=== PATIENT | female | born 1995 | race Two or more races ===

== ENCOUNTER 2024-06-22 20:02 | Inpatient (IN) | payer MEDICAID, OTHER ==
[~2024-06-22] VITALS: Ht 162.6 cm; Wt 110.1 kg
[2024-06-22 20:38] LABS: Urine Bacteria None Seen /hpf (None Seen)
[2024-06-22 20:55] LABS: Urine Blood Negative /uL (Negative); Urine Clarity Turbid (Clear); Urine Color Yellow (Yellow); Urine Mucus FEW (None Seen); Urine Protein, UAD 1+ (Negative); Urine Specific Gravity 1.035 (1.001-1.035); Urine Squamous Epithelial Cell FEW /hpf (<5); Urine Urobilinogen Normal (Negative); Urine WBC 3 /HPF (0-5)
[2024-06-22 21:14] LABS: Basophils # (auto) 0.1 10 ^3/uL (0-0.2); Eosinophils # (auto) 0 10 ^3/uL (0-0.8); Eosinophils % (auto) 0.2 % (0.0-7.0); Hemoglobin 13.5 g/dL (12.2-16.2); Monocytes # (auto) 0.8 10 ^3/uL (0-1.3)
[2024-06-22 21:18] LABS: Basophils % (auto) 0.5 % (0.0-2.0); Hematocrit 39.7 % (36.0-46.0); Lymphocytes # (auto) 1.3 10 ^3/uL (0.4-5.4); Lymphocytes % (auto) 5.7 % (10.0-50.0); Mean Corpuscular Hemoglobin 28.6 pg (28.0-32.0); Mean Corpuscular Hgb Conc. 34.1 g/dL (32.0-36.0); Mean Corpuscular Volume 83.8 fL (80.0-100.0); Monocytes % (auto) 3.3 % (0.0-12.0); Neutrophils # (auto) 20.6 10 ^3/uL (1.6-8.6); Neutrophils % (auto) 90.3 % (37.0-80.0); Platelet Count (auto) 474 10^3/uL (140-450); Red Blood Cells 4.74 10^6/uL (4.0-5.20); Red Cell Distribution Width 13.8 % (11.8-14.3); White Blood Cell 22.8 10^3/uL (4.4-10.8)
[2024-06-22 21:31] LABS: Alanine Aminotransferase 37 U/L (7-40); Albumin 5.3 g/dL (3.2-4.8); Alkaline Phosphatase 111 U/L (46-116); Anion Gap 10 (5-15); Aspartate Aminotransferase 44 U/L (13-40); BUN/Creatinine Ratio 11.8 (10.0-20.0); Bilirubin, Total 0.5 mg/dL (0.2-1.0); Blood Urea Nitrogen 9 mg/dL (9-23); Calcium 10.1 mg/dL (8.7-10.4); Carbon Dioxide 26 mmol/L (20-31); Chloride 102 mmol/L (98-107); Glucose 104 mg/dL (74-106); Potassium 4.1 mmol/L (3.5-5.1); Sodium 138 mmol/L (136-145); Total Protein 8.8 g/dL (5.7-8.2)
--- NOTE | 2024-06-22 21:33 | DVH ---
Exam: CT CT AB PEL WO CON-NO ORAL OR IV History: flank pain Comparison Study: None Technique: Multidetector spiral CT of the abdomen was performed from lung bases to pubic symphysis. Imaging was performed without IV contrast. Axial, coronal and sagittal multiplanar reformats were ob tained from the axial data set by the technologist. Radiation Dose : 1. Abdomen/Pelvis: CTDIvol 19.3 mGy, DLP 1208 mGy*cm. Findings: Evaluation of solid organs is limited due to lack of intravenous contrast use. Lung Bases: No acute or significant lung base finding. Normal heart size. No pleural or pericardial effusion. Liver: The liver is normal in size. No focal lesions. Gallbladder and Biliary Tree: Cholelithiasis noted without secondary findings of cholecystitis or sneha iary obstruction. Spleen: Unremarkable Pancreas: The pancreas is grossly normal in appearance. Adrenal Glands: Unremarkable Kidneys: Kidneys are grossly normal without calculi or hydronephrosis. Bladder: Grossly unremarkable for degree of distention. Bowel: The stomach is grossly normal in appearance. Concentric wall thickening of the distal colon wi th adjacent fat stranding, suspicious for infectious/inflammatory colitis . The appendix is not visu alized; however, no secondary findings of acute appendicitis identified. Ascites: Absent Lymphadenopathy: No mesenteric, retroperitoneal or periportal lymphadenopathy. Abdominal Wall and Mesentery: Unremarkable. Vasculature: The visualized abdominal aorta is normal in size and caliber. Evaluation of abdominal a nd pelvic vessels is limited due to lack of intravenous contrast. Pelvic Organs: Heterogeneous tubular fluid collections are seen in the region of the bilateral adnexa measuring up 5.8 cm on the right and up to 6.8 cm in the left. Musculoskeletal: No aggressive focal bony lesions, acute fractures or dislocation. IMPRESSION: 1. Concentric wall thickening of the distal colon with adjacent fat stranding, suspicious for infecti ous/inflammatory colitis . 2. Heterogeneous tubular fluid collections are seen in the region of the bilateral adnexa measuring u p to 5.8 cm on the right and up to 6.8 cm in the left. Differential considerations include tubo-ovar joshua abscess, hydrosalpinx, or other etiology. Recommend pelvic ultrasound for further evaluation. Radiation optimization: All CT scans at this facility use at least one of these dose optimization lowell hniques: automated exposure control mA and/or kV adjustment per patient size (includes targeted exam s where dose is matched to clinical indication) or iterative reconstruction.
--- NOTE | 2024-06-22 22:47 | DVH ---
INDICATION: pelvic pain TECHNIQUE: Multiple real-time grayscale transabdominal sonographic images along with color and duplex Doppler of the uterus and ovaries were obtained. COMPARISON: None FINDINGS: The uterus measures 9.9 x 8.3 x 5.4 cm. cm. The endometrial stripe measures 12.6 mm. The right ovary measures 8.1 x 5.6 x 4.8 cm. Cystic mass mass in the right ovary 4.7 x 2.5 x 3.4 cm The left ovary measures 7.9 x 7 x 6.6 cm. Cystic mass in the left ovary measuring 6.1 x 4.1 x 6 cm. Subsequent color and duplex Doppler interrogation of the ovaries demonstrated symmetric vascular flow to both ovaries, though this does not exclude the possibility of torsion due to the dual blood suppl y. IMPRESSION: 1. Uterus normal. 2. Thickened endometrial canal. 3. Cystic lesions in both ovaries. 4. Normal Doppler imaging of the right and left ovaries
[2024-06-22 23:20] VITALS: PULSE 115; RESP 20; O2SAT 98
[2024-06-22] MEDS: HYDROcodone-ACET 5/325MG TAB PO ONE (23:33)
[2024-06-23] MEDS ORDERED: PIPERACILLIN-TAZOB 2.25GM 50 ML IV ONE (01:00)
--- NOTE | 2024-06-23 01:02 | ED.PDOC ---
General HPI Comments 29-year-old female complaining of left-sided flank pain which started 3:00 p.m. today sharp in nature. States it started with chills and nausea. Nothing makes it better. States patient was 8/10 getting worse. Radiates to her suprapubic region. No urinary symptoms. No vaginal discharge. 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: No Pertinent PAPER PRODUCTS INSPECTOR History Constitutional: denies: chills, diaphoresis, fatigue, fever, malaise, sweats, weakness, others EENTM: denies: blurred vision, double vision, ear bleeding, ear discharge, ear drainage, ear pain, ear ringing, eye pain, eye redness, hearing loss, mouth pain, mouth swelling, nasal discharge, nose bleeding, nose congestion, nose pain, photophobia, tearing, throat pain, throat swelling, voice changes, others Respiratory: denies: cough, hemoptysis, orthopnea, SOB at rest, shortness of breath, SOB with excertion, stridor, wheezing, others Cardiovascular: denies: chest pain, dizzy spells, diaphoresis, Dyspnea on exertion, edema, irregular heart beat, left arm pain, lightheadedness, palpitations, PND, syncope, others Gastrointestinal: denies: abdomen distended, abdominal pain, blood streaked bowels, constipated, diarrhea, dysphagia, difficulty swallowing, hematemesis, melena, nausea, poor appetite, poor fluid intake, rectal bleeding, rectal pain, vomiting, others Genitourinary: denies: abnormal vagina bleeding, burning, dyspareunia, dysuria, flank pain, frequency, hematuria, incontinence, pain, , vagina discharge, urgency, others Neurological: denies: dizziness, fainting, headache, left sided numbness, left sided weakness, numbness, paresthesia, pre-existing deficit, right sided numbness, right sided weakness, seizure, speech problems, tingling, tremors, we akness, others Musculoskeletal: denies: back pain, gout, joint pain, joint swelling, muscle pain, muscle stiffness, neck pain, others Integumetry: denies: bruises, change in color, change in hair/nails, dryness, laceration, lesions, lumps, rash, wounds, others Allergic/Immunocompromised: denies: Difficulty Healing, Frequent Infections, Hives, Itching, others Endocrine: denies: excessive hunger, excessive sweating, excessive thirst, excessive urination, flushing, intolerance to cold, intolerance to heat, unexplained weight gain, unexplained weight loss, others Physical Exam General Appearance: Moderate Distress HEENT: Normal ENT Inspection, Pharynx Normal, TMs Normal Neck: Full Range of Motion, Non-Tender, Normal, Normal Inspection Respiratory: Chest Non-Tender, Lungs Clear, No Accessory Muscle Use, No Respiratory Distress, Normal Breath Sounds Cardiovascular: No Edema, No JVD, No Murmur, No Gallop, Normal Peripheral Pulses, Regular Rate/Rhythm Breast Exam: Deferred Gastrointestinal: No Organomegaly, Non Tender, No Pulsatile Mass, Normal Bowel Sounds, Soft Genitalia: Deferred Pelvic: Deferred Rectal: Deferred Extremities: No calf tenderness, Normal capillary refill, Normal inspection, Normal range of motion, Non-tender, No pedal edema Musculoskeletal : Apperance: Normal Neurologic: Alert, 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 Was a procedure done?: No Differential Diagnosis Kidney stone (Female): Ectopic , Musculoskeletal pain, Ovarian torsion, Pancreatitis, Pyelonephritis X-Ray, Labs, Meds, VS Vital Signs Date Time Temp Pulse Resp B/P (MAP) Pulse Ox O2 Delivery O2 Flow Rate FiO2 06/22/24 23:20 98.1 115 20 150/98 (115) 98 98.1 06/22/24 23:20 115 20 98 Room Air* 0 21 06/22/24 20:20 98.4 100 20 130/71 (90) 98 Lab Test 06/22/24 20:41 06/22/24 20:20 Range/Units White Blood Count 22.8 H 4.4-10.8 10^3/uL Red Blood Count 4.74 4.0-5.20 10^6/uL Hemoglobin 13.5 12.2-16.2 g/dL Hematocrit 39.7 36.0-46.0 % Mean Corpuscular Volume 83.8 80.0-100.0 fL Mean Corpuscular Hemoglobin 28.6 28.0-32.0 pg Mean Corpuscular Hemoglobin Concent 34.1 32.0-36.0 g/dL Red Cell Distribution Width 13.8 11.8-14.3 % Platelet Count 474 H 140-450 10^3/uL Mean Platelet Volume 7.5 6.9-10.8 fL Neutrophils (%) (Auto) 90.3 H 37.0-80.0 % Lymphocytes (%) (Auto) 5.7 L 10.0-50.0 % Monocytes (%) (Auto) 3.3 0.0-12.0 % Eosinophils (%) (Auto) 0.2 0.0-7.0 % Basophils (%) (Auto) 0.5 0.0-2.0 % Neutrophils # (Auto) 20.6 H 1.6-8.6 10 ^3/uL Lymphocytes # (Auto) 1.3 0.4-5.4 10 ^3/uL Monocytes # (Auto) 0.8 0-1.3 10 ^3/uL Eosinophils # (Auto) 0 0-0.8 10 ^3/uL Basophils # (Auto) 0.1 0-0.2 10 ^3/uL Nucleated Red Blood Cells 0.0 % Sodium Level 138 136-145 mmol/L Potassium Level 4.1 3.5-5.1 mmol/L Chloride Level 102 98-107 mmol/L Carbon Dioxide Level 26 20-31 mmol/L Anion Gap 10 5-15 Blood Urea Nitrogen 9 9-23 mg/dL Creatinine 0.76 0.550-1.02 mg/dL Glomerular Filtration Rate Calc 109 >90 mL/min BUN/Creatinine Ratio 11.8 10.0-20.0 Serum Glucose 104 74-106 mg/dL Calcium Level 10.1 8.7-10.4 mg/dL Total Bilirubin 0.5 0.2-1.0 mg/dL Aspartate Amino Transferase (AST) 44 H 13-40 U/L Alanine Aminotransferase (ALT) 37 7-40 U/L Alkaline Phosphatase 111 46-116 U/L Total Protein 8.8 H 5.7-8.2 g/dL Albumin 5.3 H 3.2-4.8 g/dL Urine Color Yellow Yellow Urine Clarity Turbid H Clear Urine pH 6.0 5.0-9.0 Urine Specific [place] 1.035 1.001-1.035 Urine Protein 1+ H Negative Urine Ketones Trace Negative Urine Blood Negative Negative /uL Urine Nitrite Negative Negative Urine Bilirubin Negative Negative Urine Urobilinogen Normal Negative mg/dL Urine Leukocyte Esterase Negative Negative /uL Urine RBC 1 0 - 4 /hpf Urine Microscopic WBC 3 0-5 /HPF Urine Squamous Epithelial Cells Few <5 /hpf Urine Bacteria None seen None Seen /hpf Urine Mucus Few None Seen Urine Glucose Normal Normal mg/dL Urine Test Negative Negative Current Medications Medications (Trade) Dose Ordered Sig/Cecy Route Start Time Stop Time Status Last Admin Acetaminophen/ Hydrocodone Bitart ([place] 5/325MG Tab) 1 tab ONCE ONCE PO 06/22/24 23:15 06/22/24 23:16 DC 06/22/24 23:33 X-Ray, Labs, Meds, VS Comment Spoke with doctors TARAS bernal on-call patient will be admitted for possible ovarian abscess She recommends starting patient on Zosyn, doxycycline, Rocephin Patient be given morphine 4 mg in ER Time of 1ST Reevaluation: 01:01 Reevaluation 1ST: Unchanged Patient Education/Counseling: Diagnosis, Treatment Family Education/Counseling: Diagnosis, Treatment Departure 1 Departure Time of Disposition: 01:00 Impression: Primary Impression: Ovarian abscess Disposition: 09 ADMITTED INPATIENT Condition: Stable Discharged With: Self Critical Care Note Critical Care Time?: No Stability Stability form required: No Heart Score Heart Score: Heart Score Response (Comments) Value History N/A 0 EKG N/A 0 Age N/A 0 Risk Factors N/A 0 Troponin N/A 0 Total 0 CYRIL DU Jun 23, 2024 01:01
[2024-06-23] MEDS: cefTRIAXone 1GM/50ML D5W 50 ML IV ONE ×2 (01:23→14:06)
[2024-06-23] MEDS: ONDANSETRON HCL 4 MG/2 ML VIAL IV ONE (01:23)
[2024-06-23] MEDS: MORPHINE SULFATE 4 MG/ML SYR/VIAL IV ONE (01:24)
[2024-06-23] MEDS ORDERED: metroNIDAZOLE 500MG/100ML 100 ML IV SCH (01:45)
[2024-06-23] MEDS: SODIUM CHLORIDE 0.9% 1,650 ML IV ONE (02:05)
[2024-06-23 02:31] LABS: Lactic Acid w/Reflex 2.4 mmol/L (0.4-2.0)
[2024-06-23] MEDS: SODIUM CHLORIDE 0.9% 1,000 ML IV SCH (03:12)
[2024-06-23] MEDS: DOXYCYCLINE 100MG/100ML 100 ML IV SCH (03:20)
[2024-06-23 03:25] LABS: Erythrocyte Sedimentation Rate 32 mm/hr (0-20)
[2024-06-23] MEDS: KETOROLAC TROMETH 30 MG/ML 1ML VIAL IV PRN (03:28)
--- NOTE | 2024-06-23 04:52 | DVHHPRES ---
History of Present Illness Resident Creating Document: CRISTINA CANNON RESIDENT Reason for Visit: tuboovarian abcess History of Present Illness 29-year-old female presenting with a complaint of left-sided flank pain that began at approximately 3:00 PM yesterday. The pain was initially sharp in nature, accompanied by chills and nausea. She reports that the pain has progressively worsened, with a severity of 8/10. The pain radiates to the suprapubic region and has become more generalized. She also reports vaginal discharge, described as white. She denies urinary symptoms, dysuria, or dyspareunia. Her last menstrual period was in the first week of April. She has a history of irregular menstrual cycles. Obstetric history includes one section performed eight months ago. No history of . Past Medical History: Denies any chronic medical conditions Past Surgical History: One section (8 months ago) Obstetric/Gynecologic History: : 1, Para: 1 Irregular menstrual cycles No history of Allergies: No known drug allergies Medications: None reported Review of Systems Review of Systems Constitutional: Reports chills, fatigue. No fever or malaise. HEENT: Denies headaches, vision changes, ear pain, nasal congestion, or sore throat. Cardiovascular: Denies chest pain, palpitations, or dyspnea on exertion. Respiratory: Denies shortness of breath, cough, or wheezing. Gastrointestinal: Reports nausea. Denies vomiting, diarrhea, constipation, or hematochezia. Genitourinary: Reports left flank pain radiating to the suprapubic region. No dysuria or hematuria. Reports white vaginal discharge. Neurological: Denies dizziness, tingling, or focal weakness. Endocrine: Denies heat/cold intolerance or weight changes. Musculoskeletal: Denies joint pain or swelling. Allergies: Coded Allergies: NO KNOWN ALLERGIES (Unverified , 06/22/24) Medications Current Medications Medications Dose Ordered Sig/Cecy Route Start Time Stop Time Status Last Admin Dose Admin Ceftriaxone Sodium 50 ml @ 100 mls/hr DAILY@09 IV 06/24/24 09:00 Doxycycline Hyclate 100 ml @ 50 mls/hr Q12H IV 06/23/24 01:45 06/23/24 03:20 50 MLS/HR Sodium Chloride 1,000 ml @ 125 mls/hr Q8H IV 06/23/24 01:45 06/23/24 03:12 125 MLS/HR Ketorolac Tromethamine 30 mg Q6HPRN PRN IV 06/23/24 01:45 06/28/24 01:44 06/23/24 03:28 30 MG Acetaminophen 500 mg Q6HP PRN PO 06/23/24 01:45 Metronidazole 100 ml @ 100 mls/hr Q8HR IV 06/23/24 03:00 Exam Vital Signs Vital Signs Date Time Temp Pulse Resp B/P (MAP) Pulse Ox O2 Delivery O2 Flow Rate FiO2 06/23/24 03:32 99.2 117 18 119/62 (81) 96 99.2 06/22/24 23:20 Room Air* 0 21 Exam HEENT: Normocephalic, atraumatic. No oropharyngeal abnormalities. Neck: No lymphadenopathy. No thyromegaly. Cardiovascular: Regular rate and rhythm. No murmurs, rubs, or gallops. Pulmonary: Clear to auscultation bilaterally. No respiratory distress. Abdomen: Soft, mild suprapubic tenderness, no peritoneal signs. Bowel sounds present. Genitourinary: left CVA tenderness. Neurological: Alert and oriented. No focal deficits. Labs/Xrays Labs Test 06/23/24 03:44 06/23/24 01:56 06/22/24 20:41 06/22/24 20:20 Range/Units White Blood Count 22.8 H 4.4-10.8 10^3/uL Red Blood Count 4.74 4.0-5.20 10^6/uL Hemoglobin 13.5 12.2-16.2 g/dL Hematocrit 39.7 36.0-46.0 % Mean Corpuscular Volume 83.8 80.0-100.0 fL Mean Corpuscular Hemoglobin 28.6 28.0-32.0 pg Mean Corpuscular Hemoglobin Concent 34.1 32.0-36.0 g/dL Red Cell Distribution Width 13.8 11.8-14.3 % Platelet Count 474 H 140-450 10^3/uL Mean Platelet Volume 7.5 6.9-10.8 fL Neutrophils (%) (Auto) 90.3 H 37.0-80.0 % Lymphocytes (%) (Auto) 5.7 L 10.0-50.0 % Monocytes (%) (Auto) 3.3 0.0-12.0 % Eosinophils (%) (Auto) 0.2 0.0-7.0 % Basophils (%) (Auto) 0.5 0.0-2.0 % Neutrophils # (Auto) 20.6 H 1.6-8.6 10 ^3/uL Lymphocytes # (Auto) 1.3 0.4-5.4 10 ^3/uL Monocytes # (Auto) 0.8 0-1.3 10 ^3/uL Eosinophils # (Auto) 0 0-0.8 10 ^3/uL Basophils # (Auto) 0.1 0-0.2 10 ^3/uL Nucleated Red Blood Cells 0.0 % Erythrocyte Sedimentation Rate 32 H 0-20 mm/hr Sodium Level 138 136-145 mmol/L Potassium Level 4.1 3.5-5.1 mmol/L Chloride Level 102 98-107 mmol/L Carbon Dioxide Level 26 20-31 mmol/L Anion Gap 10 5-15 Blood Urea Nitrogen 9 9-23 mg/dL Creatinine 0.76 0.550-1.02 mg/dL Glomerular Filtration Rate Calc 109 >90 mL/min BUN/Creatinine Ratio 11.8 10.0-20.0 Serum Glucose 104 74-106 mg/dL Calcium Level 10.1 8.7-10.4 mg/dL Total Bilirubin 0.5 0.2-1.0 mg/dL Aspartate Amino Transferase (AST) 44 H 13-40 U/L Alanine Aminotransferase (ALT) 37 7-40 U/L Alkaline Phosphatase 111 46-116 U/L C-Reactive Protein High Sensitivity 3.13 H <1.0 mg/dL Total Protein 8.8 H 5.7-8.2 g/dL Albumin 5.3 H 3.2-4.8 g/dL Urine Color Yellow Yellow Urine Clarity Turbid H Clear Urine pH 6.0 5.0-9.0 Urine Specific [place] 1.035 1.001-1.035 Urine Protein 1+ H Negative Urine Ketones Trace Negative Urine Blood Negative Negative /uL Urine Nitrite Negative Negative Urine Bilirubin Negative Negative Urine Urobilinogen Normal Negative mg/dL Urine Leukocyte Esterase Negative Negative /uL Urine RBC 1 0 - 4 /hpf Urine Microscopic WBC 3 0-5 /HPF Urine Squamous Epithelial Cells Few <5 /hpf Urine Bacteria None seen None Seen /hpf Urine Mucus Few None Seen Urine Glucose Normal Normal mg/dL Urine Test Negative Negative Assessment/Plan Assessment/Plan Laboratory and Imaging Findings: Laboratory Results: WBC: 22.8 CRP: 3.13 Lactic Acid: 2.4 Neg test Imaging: CT Abdomen/Pelvis (Non-contrast): Concentric wall thickening of the distal colon with adjacent fat stranding, suspicious for infectious/inflammatory colitis. Heterogeneous tubular fluid collections in the bilateral adnexa (right: 5.8 cm, left: 6.6 cm) possible tubo-ovarian abscess. No acute appendicitis. Pelvic Ultrasound: Uterus normal. Thickened endometrial canal. Cystic lesions in both ovaries. Normal Doppler flow to ovaries Assessment & Plan: 29-year-old female with recent section 8 months ago, irregular periods, and presenting with acute left flank pain radiating to the suprapubic region with leukocytosis and adnexal fluid collections concerning for a possible tubo- ovarian abscess. 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 Blood, stool and urine culture NAAT NG/Chlamydia Ca 125 ordered Pain management Case discussed with Dr Betancourt Plan discussed with: Patient, Other (rn) My Orders Orders - CRISTINA CANNON RESIDENT Procedure Category Date Status Time Admit ADMIT 06/23/24 Transmitted 01:34 * Visor Installer Consultation CONS 06/23/24 Transmitted 01:34 Doxycycline PHA 06/23/24 In Process 100mg/100ml 01:45 Npo After Midnight DIET 06/23/24 Transmitted Breakfast Sodium Chloride 0.9% PHA 06/23/24 In Process 01:45 Ketorolac Injection PHA 06/23/24 In Process (Toradol Injection) 01:45 Acetaminophen Tab Or PHA 06/23/24 In Process Cap (Tylenol Tablet 01:45 Ca 125 (Serial) LAB 06/23/24 In Process 01:39 Blood Culture SENTHIL 06/23/24 In Process 01:40 Urine Bacterial SENTHIL 06/23/24 In Process Culture 01:40 Chlamydia/Gc LAB 06/23/24 In Process Amplification 01:40 Ceftriaxone 1gm/50ml PHA 06/24/24 In Process D5w (Rocephin) 09:00 Metronidazole PHA 06/23/24 In Process 500mg/100ml (Flagyl 03:00 Stool Bacterial SENTHIL 06/23/24 Logged Culture 02:18 Stool Occult Blood LAB 06/23/24 Logged 02:18 Stool Wbc LAB 06/23/24 Logged 02:18 Complete Blood Count LAB 06/23/24 Logged 04:09 Comprehensive LAB 06/23/24 Logged Metabolic Panel 04:09 Date of Service: Jun 23, 2024 Billing Provider: ARIEL BETANCOURT MD Common Visit Codes: [id number] INP/OBS CARE (HIGH) CRISTINA CANNON RESIDENT Jun 23, 2024 04:52 ARIEL BETANCOURT MD Jun 27, 2024 17:22
[2024-06-23] MEDS: metroNIDAZOLE 500MG/100ML 100 ML IV SCH (05:37)
[2024-06-23 08:05] LABS: Basophils # (auto) 0.1 10 ^3/uL (0-0.2); Basophils % (auto) 0.3 % (0.0-2.0); Eosinophils # (auto) 0.1 10 ^3/uL (0-0.8); Eosinophils % (auto) 0.2 % (0.0-7.0); Hematocrit 38.2 % (36.0-46.0); Hemoglobin 12.2 g/dL (12.2-16.2); Lymphocytes # (auto) 1.2 10 ^3/uL (0.4-5.4); Lymphocytes % (auto) 4.2 % (10.0-50.0); Mean Corpuscular Hemoglobin 27.1 pg (28.0-32.0); Mean Corpuscular Hgb Conc. 31.9 g/dL (32.0-36.0); Mean Corpuscular Volume 84.9 fL (80.0-100.0); Monocytes # (auto) 0.9 10 ^3/uL (0-1.3); Monocytes % (auto) 3.2 % (0.0-12.0); Neutrophils # (auto) 25.1 10 ^3/uL (1.6-8.6); Neutrophils % (auto) 92.1 % (37.0-80.0); Platelet Count (auto) 399 10^3/uL (140-450); Red Cell Distribution Width 13.5 % (11.8-14.3); White Blood Cell 27.2 10^3/uL (4.4-10.8)
[2024-06-23] MEDS: ACETAMINOPHEN 500 MG TAB or CAP PO PRN (08:21)
[2024-06-23 08:22] LABS: INR 1.18 (0.9-1.15); Partial Thromboplastin Time 29.9 SEC (24.5-34.5); Prothrombin Time 12.3 sec (9.3-11.8)
[2024-06-23 08:30] VITALS: BP 129/57; PULSE 119; RESP 20; TEMP 99.7; O2SAT 98
[2024-06-23 08:40] LABS: Beta HCG, Quantitative 0.1 mIU/mL (1.5-4.2); Thyroid Stimulating Hormone 1.15 uIU/mL (0.55-4.78)
[2024-06-23 09:13] LABS: Alanine Aminotransferase 27 U/L (7-40); Alkaline Phosphatase 97 U/L (46-116); Anion Gap 9 (5-15); BUN/Creatinine Ratio 9.7 (10.0-20.0); Calcium 8.9 mg/dL (8.7-10.4); Carbon Dioxide 22 mmol/L (20-31); Magnesium 1.6 mg/dL (1.6-2.6); Sodium 139 mmol/L (136-145); Total Protein 7.8 g/dL (5.7-8.2)
[2024-06-23 09:14] LABS: Albumin 4.7 g/dL (3.2-4.8); Aspartate Aminotransferase 20 U/L (13-40); Bilirubin, Total 0.9 mg/dL (0.2-1.0); Blood Urea Nitrogen 7 mg/dL (9-23); Chloride 108 mmol/L (98-107); Glucose 113 mg/dL (74-106)
[2024-06-23] MEDS ORDERED: DOXYCYCLINE 100MG/100ML 100 ML IV SCH (10:00)
--- NOTE | 2024-06-23 13:04 | DVHINCON2 ---
Date of service: Jun 23, 2024 Referring Physician hospitalist Reason for Consultation tubo-ovarian absess History of Present Illness pt is female admitted for sepsis due to bilat toa ,pt reports having fever ,chilla assoc with abd pain .she also had taCHYCARDIA WITH LEUCKOCYTOSIS Past Medical History NONE Past Surgical History CS X1 Family History NA Social History DENIES SMOKING OR DRINKING Patient Family History: Patient reports no known family medical history. Allergies: Coded Allergies: NO KNOWN ALLERGIES (Unverified , 06/22/24) Home Meds No Active Prescriptions or Reported Meds Current Medications Current Medications Medications (Trade) Dose Ordered Sig/Cecy Route PRN Reason Start Time Stop Time Status Last Admin Doxycycline Hyclate 100 ml @ 50 mls/hr BID IV 06/23/24 10:00 06/23/24 01:40 DC Ceftriaxone Sodium 50 ml @ 100 mls/hr DAILY@09 IV 06/24/24 09:00 Doxycycline Hyclate 100 ml @ 50 mls/hr Q12H IV 06/23/24 01:45 06/23/24 03:20 Metronidazole 100 ml @ 100 mls/hr Q8HR IV 06/23/24 01:45 06/23/24 01:58 DC Sodium Chloride 1,000 ml @ 125 mls/hr Q8H IV 06/23/24 01:45 06/23/24 09:38 Ketorolac Tromethamine (Toradol Injection) 30 mg Q6HPRN PRN IV MODERATE PAIN (4-6 PAIN SCALE) 06/23/24 01:45 06/28/24 01:44 06/23/24 09:30 Acetaminophen (Tylenol Tablet Or Capsule) 500 mg Q6HP PRN PO MILD PAIN (1-3 PAIN SCALE) 06/23/24 01:45 06/23/24 11:04 DC 06/23/24 08:21 Metronidazole 100 ml @ 100 mls/hr Q8HR IV 06/23/24 03:00 06/23/24 05:37 Acetaminophen (Tylenol Tablet Or Capsule) 500 mg Q6H PO 06/23/24 11:15 Review of Systems Constitutional: POSITIVE FOR fever, chill, NO weight loss HEENT: no eye pain, no hearing loss, no oral lesion, no scleral icterus Heart: no chest pain, no chest pressure Lung: no cough, no dyspnea with exertion Abdomen: see HPI : no pain with urination, normal appearing urine Musculoskeletal: no joint pain, no muscle pain Neurological: no seizure, no loss of sensation, no weakness in extremities Pysch: no depression, no anxiety Derm: no rash, no jaundice Vital Signs Vital Signs Date Time Temp Pulse Resp B/P (MAP) Pulse Ox O2 Delivery O2 Flow Rate FiO2 06/23/24 08:30 99.7 119 20 129/57 (81) 98 99.7 06/22/24 23:20 Room Air* 0 21 Physical Exam SKIN: [WARM TO TOUCH] HEENT: [NL] NECK: [NL] CARDIAC: [TACHY RATE] PULMONARY: [CTA] ABDOMEN: [SOFT,OBESE GENERALIZED TENDERNESS,NO REBOUND] MUSCULOSKELETAL: [NL] NEURO: [NL] PELVIC-VAG WARM ,NO PURULENT DC NOTED,POS CMT Labs/Diagnostic Data Labs Test 06/23/24 11:09 06/23/24 07:48 06/23/24 01:56 06/22/24 20:41 Range/Units Lactic Acid Level 2.0 0.4-2.0 mmol/L White Blood Count 27.2 H 4.4-10.8 10^3/uL Red Blood Count 4.50 4.0-5.20 10^6/uL Hemoglobin 12.2 12.2-16.2 g/dL Hematocrit 38.2 36.0-46.0 % Mean Corpuscular Volume 84.9 80.0-100.0 fL Mean Corpuscular Hemoglobin 27.1 L 28.0-32.0 pg Mean Corpuscular Hemoglobin Concent 31.9 L 32.0-36.0 g/dL Red Cell Distribution Width 13.5 11.8-14.3 % Platelet Count 399 140-450 10^3/uL Mean Platelet Volume 7.4 6.9-10.8 fL Neutrophils (%) (Auto) 92.1 H 37.0-80.0 % Lymphocytes (%) (Auto) 4.2 L 10.0-50.0 % Monocytes (%) (Auto) 3.2 0.0-12.0 % Eosinophils (%) (Auto) 0.2 0.0-7.0 % Basophils (%) (Auto) 0.3 0.0-2.0 % Neutrophils # (Auto) 25.1 H 1.6-8.6 10 ^3/uL Lymphocytes # (Auto) 1.2 0.4-5.4 10 ^3/uL Monocytes # (Auto) 0.9 0-1.3 10 ^3/uL Eosinophils # (Auto) 0.1 0-0.8 10 ^3/uL Basophils # (Auto) 0.1 0-0.2 10 ^3/uL Nucleated Red Blood Cells 0.0 % Prothrombin Time 12.3 H 9.3-11.8 sec Prothrombin Time INR 1.18 H 0.9-1.15 Activated Partial Thromboplast Time 29.9 24.5-34.5 SEC Sodium Level 139 136-145 mmol/L Potassium Level 4.0 3.5-5.1 mmol/L Chloride Level 108 H 98-107 mmol/L Carbon Dioxide Level 22 20-31 mmol/L Anion Gap 9 5-15 Blood Urea Nitrogen 7 L 9-23 mg/dL Creatinine 0.72 0.550-1.02 mg/dL Glomerular Filtration Rate Calc 116 >90 mL/min BUN/Creatinine Ratio 9.7 L 10.0-20.0 Serum Glucose 113 H 74-106 mg/dL Calcium Level 8.9 8.7-10.4 mg/dL Magnesium Level 1.6 1.6-2.6 mg/dL Total Bilirubin 0.9 0.2-1.0 mg/dL Aspartate Amino Transferase (AST) 20 13-40 U/L Alanine Aminotransferase (ALT) 27 7-40 U/L Alkaline Phosphatase 97 46-116 U/L Total Protein 7.8 5.7-8.2 g/dL Albumin 4.7 3.2-4.8 g/dL Vitamin B12 Level 399 211-911 pg/mL Vitamin D 25-Hydroxy 10.5 L 30.0-100 ng/mL Thyroid Stimulating Hormone (TSH) 1.15 0.55-4.78 uIU/mL Beta HCG, Quantitative 0.1 L 1.5-4.2 mIU/mL HIV (1&2) Antibody Negative Negative Erythrocyte Sedimentation Rate 32 H 0-20 mm/hr C-Reactive Protein High Sensitivity 3.13 H <1.0 mg/dL Test 06/22/24 20:20 Range/Units Urine Color Yellow Yellow Urine Clarity Turbid H Clear Urine pH 6.0 5.0-9.0 Urine Specific [place] 1.035 1.001-1.035 Urine Protein 1+ H Negative Urine Ketones Trace Negative Urine Blood Negative Negative /uL Urine Nitrite Negative Negative Urine Bilirubin Negative Negative Urine Urobilinogen Normal Negative mg/dL Urine Leukocyte Esterase Negative Negative /uL Urine RBC 1 0 - 4 /hpf Urine Microscopic WBC 3 0-5 /HPF Urine Squamous Epithelial Cells Few <5 /hpf Urine Bacteria None seen None Seen /hpf Urine Mucus Few None Seen Urine Glucose Normal Normal mg/dL Urine Test Negative Negative Primary Diagnosis BILATERAL TOA ,PID Admitting Diagnosis: PID,SEPSIS 2' Diagnosis/Comorbidities MORBID OBESITY Plan IVF,IV ABX REEVALUATE IN 24 HRS TO SEE IF IMPROVEMENT IS SEEN ,IF NO IMPROVEMENT OR WOSENING THEN NEEDS SURGERY.DR WILL WILL SEE PT IN AM Plan discussed with: Patient Visit Coding OBGYN Date of Service: Jun 23, 2024 Billing Provider: CASIE BROWN DO COACH CLEANER Common Visit Codes: 98999-PNK/OBS SAME DATE (HIGH) COACH CLEANER Consultation Codes: [id number] CONSULT <80MIN CASIE BROWN DO Jun 23, 2024 13:04
[2024-06-23 13:30] VITALS: BP 130/77; PULSE 130; RESP 20; TEMP 100.2; O2SAT 98
[2024-06-23] MEDS: ACETAMINOPHEN 500 MG TAB or CAP PO SCH (14:24)
--- NOTE | 2024-06-23 16:04 | DVHPNRES ---
Progress Note Date Seen: Jun 23, 2024 Resident Creating Document: YAZMIN RIVAS RESIDENT Medical Necessity Reason Pt with a Central, PICC or Fol: No Subjective Review of Systems Maru Chu this is a 29-year-old female with past medical history of ? Ovarian seroma, section 8 months back, irregular menstruation who presented to the ER with a chief complaint of back pain and lower abdominal pain for the past 1 day. Patient has been experiencing purulent yellowish vaginal discharge for the past 3 days, reports onset of sharp pain and burning pain in the lower abdomen and the back for the past 1 day. Associated with fever, chills and nausea. Ambulation makes the pain worse. Patient is only sexually active with the , was always monogamous. Denies history of STIs. Says that her menstrual cycles have always been irregular, they have been regular for the past 2 years. And now they are again irregular. Past medical history, surgical history: See above Social history: Denies smoking/drinking/illicit drug use. Medications: None reported Allergies: None PCP is in [place], patient does not follow up with them anymore Patient seen and examined at bedside. Started doxy, Metro, ceftriaxone 06/22. OBGYN consulted-recommended monitoring for 24 hours on IV antibiotics, otherwise consider surgeon. Objective vital signs Vital Sign Date Time Temp Pulse Resp B/P (MAP) Pulse Ox O2 Delivery O2 Flow Rate FiO2 06/23/24 14:24 100.2 06/23/24 08:30 119 20 129/57 (81) 98 06/22/24 23:20 Room Air* 0 21 Total Intake and Output 06/22/24 06/22/24 06/23/24 15:00 23:00 07:00 Intake Total 1800 ml Balance 1800 ml medications Current Medications Medications Dose Ordered Sig/Cecy Route Start Time Stop Time Status Last Admin Dose Admin Ceftriaxone Sodium 50 ml @ 100 mls/hr DAILY@09 IV 06/24/24 09:00 Doxycycline Hyclate 100 ml @ 50 mls/hr Q12H IV 06/23/24 01:45 06/23/24 14:25 50 MLS/HR Sodium Chloride 1,000 ml @ 125 mls/hr Q8H IV 06/23/24 01:45 06/23/24 09:38 125 MLS/HR Ketorolac Tromethamine 30 mg Q6HPRN PRN IV 06/23/24 01:45 06/28/24 01:44 06/23/24 09:30 30 MG Metronidazole 100 ml @ 100 mls/hr Q8HR IV 06/23/24 03:00 06/23/24 14:25 100 MLS/HR Acetaminophen 500 mg Q6H PO 06/23/24 11:15 06/23/24 14:24 500 MG Acetaminophen/ Hydrocodone Bitart 1 tab Q6HPRN PRN PO 06/23/24 14:45 Examination Patient lying in bed, in no acute distress General: Well-built, afebrile, palor, mucosae are moist Cardiovascular: Regular S1 and S2. No murmurs, gallops or rubs. No JVD elevation. No pedal edema Respiratory: Normal B/L air entry on room air. Clear lung sounds on auscultation Abdomen: Diffuse abdominal tenderness noted on palpation, bilateral costovertebral tenderness, normoactive bowel sounds, no organomegaly Genitourinary: Deferred MSK/skin: Mobilizes 4 limbs. Skin is dry and warm Neurological: No motor, no sensitive deficits, normal speech. Pupils are isocoric and reactive. Psych/Mental Status: A/Ox3 laboratory and microbiology Laboratory Tests 06/23/24 07:48 Test 06/23/24 07:48 Range/Units Serum Glucose 113 H 74-106 mg/dL Labs and/or images reviewed: Labs reviewed by me, Image(s) reviewed by me Problem List/Assessment/Plan Problem List/Assessment/Plan Sepsis likely secondary to bilateral tubo-ovarian abscess and PID Rule out STI Rule out hepatitis Lactic acidosis-resolved OBGYN consulted-recommended IV antibiotics, re-evaluate in 24 hours to see if improvement, no improvement then need surgery. Continue IV ceftriaxone, IV metronidazole, IV doxycycline starting 06/22 On clear liquid diet, NPO after midnight Vaginal culture, HIV, RPR, hepatitis, wet count, blood culture pending Continue IV fluids Howard and Toradol IV for pain control History of ulcerative colitis-not on medication Acute gastroenteritis, likely infectious Continue IV ceftriaxone and IV metronidazole Clear liquid diet Obesity Lifestyle modification advised Vitamin-D deficiency Supplemented Plan discussed with patient in which all questions have been answered Goals of care discussed with patient for more than 29 minutes, full code status Case discussed with Dr. Cunningham Plan discussed with: Patient My Orders My Orders Orders - YAZMIN RIVAS Procedure Category Date Status Time Wet [place] LAB 06/23/24 Logged 07:04 Bacterial Culture SENTHIL 06/23/24 Uncollected Vaginal 07:04 RPR LAB 06/23/24 In Process 07:30 Acetaminophen Tab Or PHA 06/23/24 In Process Cap (Tylenol Tablet 11:15 Hydrocodone-Acet PHA 06/23/24 In Process 5/325mg Tab (Howard 14:45 Date of Service: Jun 23, 2024 Billing Provider: ANJALI PAYNE MD Common Visit Codes: [id number] INP/OBS CARE(HIGH) YAZMIN RIVAS Jun 23, 2024 16:04 ANJALI PAYNE MD Jun 26, 2024 01:48
[2024-06-23 17:30] VITALS: BP 116/76; PULSE 132; RESP 24; TEMP 100; O2SAT 96
[2024-06-23] MEDS: ERGOCALCIFEROL 50,000 UNIT(1.25MG) CAP PO SCH (18:22)
[2024-06-23] MEDS: ACETAMINOPHEN IV 1000 MG/100ML (10MG/ML) IV ONE (18:44)
[2024-06-23 20:00] VITALS: PULSE 113; RESP 18
[2024-06-23 21:00] VITALS: BP 112/71; PULSE 113; RESP 19; TEMP 98.7; O2SAT 96
[2024-06-23] MEDS: CYANOCOBALAMIN (B-12) 1000 MCG/1 ML VIAL IM ONE (21:34)
[2024-06-23] MEDS: HYDROcodone-ACET 5/325MG TAB PO PRN (21:45)
[2024-06-23] MEDS: ACETAMINOPHEN 325 MG TAB PO SCH (23:25)
[2024-06-24] VITALS (8 sets, daily range): BP systolic 103–111; BP diastolic 58–73; PULSE 99–134; RESP 14–20; TEMP 98.3–100.9; O2SAT 95–98
[2024-06-24] MEDS ORDERED: ACETAMINOPHEN 500 MG TAB or CAP PO SCH (05:15)
[2024-06-24] MEDS: ACETAMINOPHEN 500 MG TAB or CAP PO SCH (06:00)
[2024-06-24] MEDS: ONDANSETRON HCL 4 MG/2 ML VIAL IV PRN (06:36)
[2024-06-24 07:28] LABS: Alanine Aminotransferase 19 U/L (7-40); Albumin 4.2 g/dL (3.2-4.8); Alkaline Phosphatase 96 U/L (46-116); Anion Gap 8 (5-15); BUN/Creatinine Ratio 7.8 (10.0-20.0); Carbon Dioxide 22 mmol/L (20-31); Magnesium 1.8 mg/dL (1.6-2.6); Potassium 3.6 mmol/L (3.5-5.1); Sodium 138 mmol/L (136-145)
[2024-06-24 07:31] LABS: Aspartate Aminotransferase 10 U/L (13-40); Bilirubin, Total 1.3 mg/dL (0.2-1.0); Blood Urea Nitrogen 6 mg/dL (9-23); Calcium 8.5 mg/dL (8.7-10.4); Chloride 108 mmol/L (98-107); Glucose 126 mg/dL (74-106)
[2024-06-24 07:44] LABS: Basophils # (auto) 0 10 ^3/uL (0-0.2); Basophils % (auto) 0.2 % (0.0-2.0); Eosinophils # (auto) 0 10 ^3/uL (0-0.8); Hematocrit 32.6 % (36.0-46.0); Hemoglobin 10.7 g/dL (12.2-16.2); Lymphocytes # (auto) 0.8 10 ^3/uL (0.4-5.4); Lymphocytes % (auto) 2.8 % (10.0-50.0); Mean Corpuscular Hgb Conc. 32.8 g/dL (32.0-36.0); Mean Corpuscular Volume 85.2 fL (80.0-100.0); Monocytes # (auto) 0.7 10 ^3/uL (0-1.3); Monocytes % (auto) 2.6 % (0.0-12.0); Neutrophils # (auto) 26.5 10 ^3/uL (1.6-8.6); Neutrophils % (auto) 94.4 % (37.0-80.0); Platelet Count (auto) 342 10^3/uL (140-450); Red Blood Cells 3.83 10^6/uL (4.0-5.20); Red Cell Distribution Width 13.8 % (11.8-14.3); White Blood Cell 28.1 10^3/uL (4.4-10.8)
[2024-06-24 08:07] LABS: RPR Non Reactive (Non Reactive)
[2024-06-24 09:07] LABS: Cancer Antigen (CA) 125 21.9 U/mL (0.0-38.1)
[2024-06-24] MEDS: cefTRIAXone 1GM/50ML D5W 50 ML IV SCH (09:18)
--- NOTE | 2024-06-24 10:01 | DVHINCON2 ---
Date of service: Jun 24, 2024 Referring Physician Hospitalist ; Dr. Kal Sal professor of criminal justice Reason for Consultation Bilateral tubo-ovarian abscess rule out sepsis, leukocytosis, pelvic pain. Patient has been on IV antibiotics for 48 hours and her white count continues to increase as well as increased pelvic abdominal pain. Patient has further desire for children History of Present Illness History Source: Patient, Other (Dr. BROWN D0 professor of criminal justice original initial admitting professor of criminal justice consultation. I am covering for the weekend she is not responding to IV a ntibiotics and increased pelvic abdominal pain) HPI Patient is history of section and significant bowel surgery as a child gastroschisis repair. She was admitted with bilateral tubo-ovarian what appeared to be abscesses and has not responded to antibiotics for 48 hours; she has increasing pain guarding and mild rebound. Home Meds No Active Prescriptions or Reported Meds Current Meds See list Chief Complaint of Abdominal/F: Abdominal pain (On my exam this a.m. she has guarding mild rebound and worsening pain. 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 Smoker: No Hx (Negative) (Dr. Mallory Aparicio for me obtunded get the house to call me a the house to I can not you sent me some phone number and I had left a voicemail she is still on the phone), Other (Occasional late) Review of Systems Constitutional: No symptom reported Ears, Nose, & Throat: No symptom reported Eyes: No symptom reported Pulmonary/Respiratory: No symptom reported Cardiovascular: No symptom reported Gastrointestinal: No symptom reported Genitourinary: No symptom reported Musculoskeletal: No symptom reported Skin: No symptom reported Psychiatric: No symptom reported Endocrine: No symptom reported Hemotologic/Lymphatic: No symptom reported H&P Exam Vital Signs Vital Signs Date Time Temp Pulse Resp B/P (MAP) Pulse Ox O2 Delivery O2 Flow Rate FiO2 06/24/24 08:57 100.0 119 17 105/66 (79) 98 100.0 06/23/24 20:00 Room Air* 0 21 General Appeara: Well developed, Well nourished, Normal Appearance, Mild distress Head Exam: Normal inspection Neck Exam: Normal inspection, Non-tender, Normal alignment Eye Exam: bilateral eye Normal inspection, bilateral eye PERRL, bilateral eye EOMI Ear Exam: bilateral ear Auricle normal, bilateral ear Canal normal, bilateral ear TM normal Nasal Exam: Normal inspection Mouth: Normal Inspection Pulmonary/Respiratory: Normal inspection, Normal breath sounds, Chest non- tender, Lungs clear Cardiovascular/Chest: Normal inspection, Regular rate, Normal Rhythm Abdominal Exam: Other (Mild rebound and guarding acute abdominal findings positive bowel sounds,) Abdominal Pain Onset Location: RLQ, LLQ, Suprapubic Rectal Exam: Deferred Back Exam: Normal inspection Pelvic Exam: External exam normal, Tender w/ cervical motion, Other (No abnormal vaginal discharge bilateral adnexal tenderness) Shoulder Exam: Normal inspection, Non-tender, Normal ROM Elbow/Forearm Exam: Normal inspection, Non-tender, Normal ROM Wrist Exam: Normal inspection, Non-tender, Normal ROM Hand Exam: Normal inspection, Non-tender, Normal ROM Hip exam: Normal inspection, Non-tender, Normal range of motion Legs: bilateral leg non-tender, bilateral leg normal inspection, bilateral leg normal range of motion, bilateral leg no evidence of injury Knees: bilateral knee non-tender, bilateral knee normal inspection, bilateral knee normal range of motion, bilateral knee no evidence of injury Ankle Exam: bilateral ankle Normal inspection, bilateral ankle Non-tender, bilateral ankle Normal range of motion, bilateral ankle No evidence of injury Foot: bilateral foot non-tender, bilateral foot normal inspection, bilateral foot normal range of motion, bilateral foot no evidence of injury Tendon/ Neuro: Normal sensation, Normal motor function, Normal tendon functions MACHINE FITTER Exam: Normal hearing, Normal speech, PERRL Motor/Sensory: Normal sensory function, Normal motor function, Negative Babinski's sign Deep Tendon Ref: All intact Neuro/Mental St: Alert, Oriented Appearance: Appropriate appearance, Appropriate insight Eye contact/ Speech: Cooperative, Good eye contact, Normal speech Coordination/Gait: Normal finger->nose, Normal gait, Negative Romberg's sign Skin Exam: Normal inspection, Normal color, Warm/dry Lymphatic: Normal inspection Wounds None Labs/Xrays Labs Test 06/24/24 09:13 06/24/24 06:45 06/23/24 07:48 06/23/24 01:56 Range/Units White Blood Count 28.1 H 4.4-10.8 10^3/uL Red Blood Count 3.83 L 4.0-5.20 10^6/uL Hemoglobin 10.7 L 12.2-16.2 g/dL Hematocrit 32.6 #L 36.0-46.0 % Mean Corpuscular Volume 85.2 80.0-100.0 fL Mean Corpuscular Hemoglobin 28.0 28.0-32.0 pg Mean Corpuscular Hemoglobin Concent 32.8 32.0-36.0 g/dL Red Cell Distribution Width 13.8 11.8-14.3 % Platelet Count 342 140-450 10^3/uL Mean Platelet Volume 7.6 6.9-10.8 fL Neutrophils (%) (Auto) 94.4 H 37.0-80.0 % Lymphocytes (%) (Auto) 2.8 L 10.0-50.0 % Monocytes (%) (Auto) 2.6 0.0-12.0 % Eosinophils (%) (Auto) 0.0 0.0-7.0 % Basophils (%) (Auto) 0.2 0.0-2.0 % Neutrophils # (Auto) 26.5 H 1.6-8.6 10 ^3/uL Lymphocytes # (Auto) 0.8 0.4-5.4 10 ^3/uL Monocytes # (Auto) 0.7 0-1.3 10 ^3/uL Eosinophils # (Auto) 0 0-0.8 10 ^3/uL Basophils # (Auto) 0 0-0.2 10 ^3/uL Nucleated Red Blood Cells 0.0 % Sodium Level 138 136-145 mmol/L Potassium Level 3.6 3.5-5.1 mmol/L Chloride Level 108 H 98-107 mmol/L Carbon Dioxide Level 22 20-31 mmol/L Anion Gap 8 5-15 Blood Urea Nitrogen 6 L 9-23 mg/dL Creatinine 0.77 0.550-1.02 mg/dL Glomerular Filtration Rate Calc 107 >90 mL/min BUN/Creatinine Ratio 7.8 L 10.0-20.0 Serum Glucose 126 H 74-106 mg/dL Calcium Level 8.5 L 8.7-10.4 mg/dL Magnesium Level 1.8 1.6-2.6 mg/dL Total Bilirubin 1.3 H 0.2-1.0 mg/dL Aspartate Amino Transferase (AST) 10 L 13-40 U/L Alanine Aminotransferase (ALT) 19 7-40 U/L Alkaline Phosphatase 96 46-116 U/L Total Protein 7.0 5.7-8.2 g/dL Albumin 4.2 3.2-4.8 g/dL Prothrombin Time 12.3 H 9.3-11.8 sec Prothrombin Time INR 1.18 H 0.9-1.15 Activated Partial Thromboplast Time 29.9 24.5-34.5 SEC Vitamin B12 Level 399 211-911 pg/mL Vitamin D 25-Hydroxy 10.5 L 30.0-100 ng/mL Thyroid Stimulating Hormone (TSH) 1.15 0.55-4.78 uIU/mL Beta HCG, Quantitative 0.1 L 1.5-4.2 mIU/mL Rapid Plasma Reagin Non reactive Non Reactive HIV (1&2) Antibody Negative Negative [place] 125 Antigen 21.9 0.0-38.1 U/mL Test 06/22/24 20:41 06/22/24 20:20 Range/Units Erythrocyte Sedimentation Rate 32 H 0-20 mm/hr C-Reactive Protein High Sensitivity 3.13 H <1.0 mg/dL Urine Color Yellow Yellow Urine Clarity Turbid H Clear Urine pH 6.0 5.0-9.0 Urine Specific [place] 1.035 1.001-1.035 Urine Protein 1+ H Negative Urine Ketones Trace Negative Urine Blood Negative Negative /uL Urine Nitrite Negative Negative Urine Bilirubin Negative Negative Urine Urobilinogen Normal Negative mg/dL Urine Leukocyte Esterase Negative Negative /uL Urine RBC 1 0 - 4 /hpf Urine Microscopic WBC 3 0-5 /HPF Urine Squamous Epithelial Cells Few <5 /hpf Urine Bacteria None seen None Seen /hpf Urine Mucus Few None Seen Urine Glucose Normal Normal mg/dL Urine Test Negative Negative Microbiology Date/Time Source Procedure Growth Status 06/23/24 01:56 Blood Blood Culture - Preliminary NO GROWTH AFTER 24 HOURS OF INCUBATION. Resulted 06/22/24 20:20 Voided Urine Urine Culture - Preliminary Resulted Assessment/Plan Primary Diagnosis Tubo-ovarian abscess, acute abdominal pain, severe leukocytosis not responding to IV antibiotics Admitting Diagnosis: Same 2' Diagnosis/Co-morbidities Consent: Risks benefits complications and alternatives discussed not limited to continued observation serial ultrasounds and IV antibiotics. Recommended by Dr. Doyle and myself exploratory laparotomy as she has had significant previous as well as gastroschisis so laparoscopy would be a dangerous approach. She desires further fertility so I assured her we would do as little as possible to prevent her from developing worsening sepsis and maintain her fertility. Regardless I did mentioned that she potentially may need partial or full right or left salpingo-oophorectomy and drain placement. I recommended we go through old Pfannenstiel incision. She has history of seromas postoperatively after her causing chronic pain and she continues to have that pain prior to this episode of pain and admission to the hospital. We discussed risks benefits complications alternatives not limited infection bleeding anesthesia acute chronic pain damage to adjacent organs fistula bowel damage ureter damage bladder muscles nerves vessels. She understands the risks transfusion associated risks of transfusion reaction hepatitis HIV to name a few. She also just understands the risk of decreased fertility associated with partial left or right and/or full salpingo-oophorectomy. She understands the risks associated with PID tubo-ovarian abscesses and fertility regardless whether surgery was performed. She also has general risks although rare that patient has had developed DVT PE mi stroke and despite these risks would adamantly like to proceed. All questions answered and encouraged her is Everardo doug at [phone] he speaks mostly Welsh and she prefers that I call her stepmother Felipa Spears at [phone] who will relay the message to Everardo. Plan Exploratory laparotomy drainage of bilateral tubo-ovarian abscesses possible partial or full right or left salpingo-oophorectomy and drain placement. Plan discussed with: Patient (surgical supervisor and OR crew) MELLO WILL DO Jun 24, 2024 10:01
[2024-06-24] MEDS ORDERED: KETAMINE 50mg/ML 1ml syringe ONE (10:56)
[2024-06-24] MEDS ORDERED: MIDAZOLAM HCL 2MG/2ML 2ml VIAL (1mg/ml) ONE (10:56)
[2024-06-24] MEDS ORDERED: fentaNYL CITRATE 100 MCG/2 ML VL ONE (10:56)
--- NOTE | 2024-06-24 10:58 | DVHOP2 ---
Operative Report - 2 Report Details Date: 06/24/24 Preop Diagnosis: Bilateral tubo-ovarian abscesses pelvic pain Postop Diagnosis: Same the s Surgeon: Krysta Ontiveros Laboratory Sample Carrier: Zackery stover/RN Anesthesiologist: Susanne GASPAR Anesthesia: General Drains: Bilateral intraperitoneal adnexal 15 mm non tapered Meng drains. Shukla to leg gravity. Implant: None Consent: The patient was informed of the risks and benefits of the procedure. These include but are not limited to complications of anesthesia, postoperative infection, incomplete relief of symptoms, recurrence of symptoms, damage to blood vessels, nerves and tendons, deep venous thrombosis, pulmonary embolism and possible need for repeat surgery in the future. Complications: None Estimated Blood Loss: 100 cc Fluids: See anesthesia log Findings: Bilateral dense adnexal adhesions, gross peritoneal pause on entry into the pelvic cavity, left large tubo-ovarian abscesses, js pus, large right polycystic encapsulated ovary and stretched fallopian tube questionable patency and/or function. Indications for Surgery: Tubo-ovarian abscesses, increasing white count, increased pain Name of Procedure Performed Exploratory laparotomy drainage of right polycystic ovary, left tubal ovarian abscesses, lysis of adhesions, bilateral intraperitoneal adnexal 15 mm Meng drains Procedure Details Procedure Details: Patient taken the operating room placed in supine position general anesthesia p erformed without difficulty she was then prepped and draped sterile fashion placed in [facility] examined under anesthesia shows her to have no vaginal discharge or bleeding normal-appearing cervix cervix grasped with sharp tooth tenaculum she sounded to 7 cm and then a Kroner uterine manipulator was placed. We placed a Shukla with clear urine noted. We redraped the peritoneum gloves changed attention turned to the abdomen low Pfannenstiel incision made through old Pfannenstiel incision scar down to the rectus fascia nicked in midline carried laterally rectus fascia dissected superior and inferiorly peritoneum identified entered with sharp dissection peritoneal incision was extended with Jame scissors and then the carefully the O'James O'Browning self-retaining retractor was placed. We then tediously dissected some colon and small bowel filmy adhesions off of the posterior cul-de-sac and uterus and isolated the left and right adnexa we turned attention to the right adnexa and did some lysis of adhesions from the small bowel did not I was not able to appreciate the appendix. Tube looked healthy but somewhat stretched to almost a Kermit doubt functional or patent right ovary about 5 times normal size polycystic the right ovary was bivalved and the ovarian drilling was performed to assure no pelvic abscess with it within this hard polycystic ovary which appeared to be about 3 x 5-1/2 cm in diameter only thing expressed from the ovary after drilling and bivalving was simple cysts. No no pus noted. Incidentally on entering the peritoneum it was obvious the pus was exuding from the peritoneum and 3 cultures were taken g stain anaerobic and aerobic cultures. We then turned our attention to the left adnexa with much tedious and time consuming blunt and sharp dissection the colon was removed from the left posterior cul-de-sac and left adnexa she had a large 7 cm by roughly 3-1/2 cm 4 cm pelvic tubo-ovarian abscess which ruptured in an attempt to dissect it out with malodorous anaerobic smell 3 additional cultures were performed anaerobe Gram stain and aerobic cultures. At this point using tedious blunt and sharp dissection the left adnexa was piecemeal out with care to avoid damage to the left ureter and/or colon. We copiously irrigated the entire abdomen once all this previous was performed assured hemostasis she had some oozing from the left adnexa so Surgicel Gelfoam was placed and then we again copiously irrigated and observed for 15 minutes for good hemostasis. Elected to placed 215 Portuguese non tapered Meng appearing drains in the left and right lower quadrants and adnexa the drains were secured and brought through lateral to the Pfannenstiel incision on both sides. Drain was secured with silk. Instrument sponge count correct x1 after copiously irrigated with 2 L of Ancef normal saline and assuring hemostasis and count correct x1 the peritoneum was closed with running continuous 2-0 chromic rectus fascia closed with a running continuous of looped PDS we copiously irrigated the wound and close the Camper's Susan's fascia with interrupted of 2-0 catgut and then the subcuticular 2-0 Monocryl on a Kevin needle was used to approximate skin edges and then benzoin Steri-Strips placed ABD pad placed over that and then a pressure dressing. She she then will have a abdominal binder placed in recovery Shukla will stay in overnight at least and we will re-evaluate in a.m.. Patient taken recovery room in stable but guarded condition EBL 100 cc. Specimens left adnexa piecemeal tube ovary and abscess. At patient's request her [id number] was called Felipa Regan at [phone] findings were discussed as well as her postop care. I assured her that she is going to need a minimum 2-3 days more IV antibiotics to see how she responds that we would take it daily I could not tell her when the drains will be ready to remove but all questions answered and encouraged. We also discussed the possibility of sepsis and they were hopeful that she will respond now that the abscesses are drained and irrigated. She agreed to speak with her Everardo Spears and he speaks Croatian only and let the rest of the family no her condition procedure and expected outcome. Specimen: Left tube ovary and abscess capsule piecemeal Condition Good Disposition PACU MELLO ONTIVEROS DO Jun 24, 2024 10:58
--- NOTE | 2024-06-24 11:33 | ECG ---
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
[2024-06-24] MEDS ORDERED: LIDOCAINE 1% INJ PF 5ML AMP ONE (12:10)
[2024-06-24] MEDS: METOCLOPRAMIDE HCL 5MG/ml INJ 2ml VIAL IV ONE (12:15)
[2024-06-24] MEDS: ONDANSETRON HCL 4 MG/2 ML VIAL IV ONE (12:15)
[2024-06-24] MEDS ORDERED: HYDROmorphone HCL 2 MG/ML VL/or syr IV PRN ×2 (12:15)
--- NOTE | 2024-06-24 13:30 | DVHPNRES ---
Progress Note Date Seen: Jun 24, 2024 Resident Creating Document: YAZMIN RIVAS RESIDENT Medical Necessity Reason Pt with a Central, PICC or Fol: No Subjective Review of Systems Maru Chu this is a 29-year-old female with past medical history of ? Ovarian seroma, section 8 months back, irregular menstruation who presented to the ER with a chief complaint of back pain and lower abdominal pain for the past 1 day. Patient has been experiencing purulent yellowish vaginal discharge for the past 3 days, reports onset of sharp pain and burning pain in the lower abdomen and the back for the past 1 day. Associated with fever, chills and nausea. Ambulation makes the pain worse. Patient is only sexually active with the , was always monogamous. Denies history of STIs. Says that her menstrual cycles have always been irregular, they have been regular for the past 2 years. And now they are again irregular. Past medical history, surgical history: See above Social history: Denies smoking/drinking/illicit drug use. Medications: None reported Allergies: None PCP is in [place], patient does not follow up with them anymore 06/23 - Patient seen and examined at bedside. Started doxy, Metro, ceftriaxone 06/22. OBGYN consulted-recommended monitoring for 24 hours on IV antibiotics, otherwise consider surgeon. 06/24-patient seen and examined at the bedside. WBC increased to 28, 101 F fever, denies chills. Status post xploratory laparotomy drainage of bilateral tubo- ovarian abscesses possible partial or full right or left salpingo-oophorectomy and drain placement. Objective vital signs Vital Sign Date Time Temp Pulse Resp B/P (MAP) Pulse Ox O2 Delivery O2 Flow Rate FiO2 06/24/24 08:57 100.0 119 17 105/66 (79) 98 100.0 06/24/24 08:00 Room Air* 0 21 Total Intake and Output 06/23/24 06/23/24 06/24/24 15:00 23:00 07:00 Intake Total 100 ml 875 ml Balance 100 ml 875 ml medications Current Medications Medications Dose Ordered Sig/Cecy Route Start Time Stop Time Status Last Admin Dose Admin Ceftriaxone Sodium 50 ml @ 100 mls/hr DAILY@09 IV 06/24/24 09:00 06/24/24 09:18 100 MLS/HR Doxycycline Hyclate 100 ml @ 50 mls/hr Q12H IV 06/23/24 01:45 06/24/24 03:35 50 MLS/HR Sodium Chloride 1,000 ml @ 125 mls/hr Q8H IV 06/23/24 01:45 06/24/24 05:44 125 MLS/HR Metronidazole 100 ml @ 100 mls/hr Q8HR IV 06/23/24 03:00 06/24/24 05:45 100 MLS/HR Acetaminophen/ Hydrocodone Bitart 1 tab Q6HPRN PRN PO 06/23/24 14:45 06/23/24 21:45 1 TAB Ergocalciferol 50,000 unit Q7D PO 06/23/24 16:15 06/23/24 18:22 50,000 UNIT Morphine Sulfate 1 mg Q4HP PRN IV 06/24/24 05:00 Acetaminophen 1,000 mg Q8H PO 06/24/24 07:00 Ondansetron HCl 4 mg Q4HPRN PRN IV 06/24/24 06:30 06/24/24 06:36 4 MG Examination Patient lying in bed, in no acute distress General: Well-built, afebrile, palor, mucosae are moist Cardiovascular: Regular S1 and S2. No murmurs, gallops or rubs. No JVD elevation. No pedal edema Respiratory: Normal B/L air entry on room air. Clear lung sounds on auscultation Abdomen: Diffuse abdominal tenderness noted on palpation, bilateral costovertebral tenderness, normoactive bowel sounds, no organomegaly Genitourinary: Deferred MSK/skin: Mobilizes 4 limbs. Skin is dry and warm Neurological: No motor, no sensitive deficits, normal speech. Pupils are isocoric and reactive. Psych/Mental Status: A/Ox3 laboratory and microbiology Laboratory Tests 06/24/24 06:45 Test 06/24/24 06:45 Range/Units Serum Glucose 126 H 74-106 mg/dL Microbiology Date/Time Source Procedure Growth Status 06/23/24 01:56 Blood Blood Culture - Preliminary NO GROWTH AFTER 24 HOURS OF INCUBATION. Resulted 06/22/24 20:20 Voided Urine Urine Culture - Preliminary Resulted Labs and/or images reviewed: Labs reviewed by me, Image(s) reviewed by me Problem List/Assessment/Plan Problem List/Assessment/Plan Sepsis likely secondary to bilateral tubo-ovarian abscess and PID status post Exploratory laparotomy drainage of bilateral tubal ovarian abscesses 06/24 Rule out STI Rule out hepatitis Lactic acidosis-resolved Febrile episodes OBGYN consulted-recommended IV antibiotics, re-evaluate in 24 hours to see if improvement, no improvement then need surgery. Continue IV ceftriaxone, IV metronidazole, IV doxycycline starting 06/22 Vaginal culture, HIV, RPR, hepatitis, wet count, blood culture pending Continue IV fluids [place] and Toradol IV for pain control Underwent Exploratory laparotomy drainage of bilateral tubal ovarian abscesses 06/24 Tylenol 1 g Q 8 scheduled History of ulcerative colitis-not on medication Acute gastroenteritis, likely infectious Continue IV ceftriaxone and IV metronidazole Clear liquid diet Obesity Lifestyle modification advised Vitamin-D deficiency Supplemented Plan discussed with patient in which all questions have been answered Goals of care discussed with patient for more than 29 minutes, full code status Case discussed with Dr. Wooten Plan discussed with: Patient My Orders My Orders Orders - YAZMIN RIVAS Procedure Category Date Status Time Hydrocodone-Acet PHA 06/23/24 In Process 5/325mg Tab ([place] 14:45 Hepatitis B Surface LAB 06/23/24 In Process Antigen 16:11 Hepatitis C Antibody LAB 06/23/24 In Process 16:11 Hepatitis B Surface LAB 06/23/24 In Process Antibody 16:11 Clear Liq Diet DIET 06/23/24 Transmitted Dinner Ergocalciferol PHA 06/23/24 In Process (Vitamin D 50,000 16:15 Cooling [place] FELICITAS 06/23/24 In Process 19:30 Cooling Measure ED NURSING 06/23/24 Transmitted Bacterial Culture SENTHIL 06/23/24 In Process Vaginal 23:53 Acetaminophen Tab Or PHA 06/24/24 In Process Cap (Tylenol Tablet 07:00 Transfer Orders XFER 06/24/24 Transmitted 09:05 Date of Service: Jun 24, 2024 Billing Provider: CHELSEA WOOTEN MD Common Visit Codes: [id number] INP/OBS CARE(HIGH) YAZMIN RIVAS RESIDENT Jun 24, 2024 13:30 CHELSEA WOOTEN MD Jun 25, 2024 17:49
[2024-06-24] MEDS: ALBUMIN 5% 250 ML IV ONE (13:45)
[2024-06-24] MEDS: GELATIN 1 SPONGE SIZE 100 TOP ONE (13:51)
[2024-06-24] MEDS ORDERED: SUGAMMADEX 200mg/2ml Vial (100MG/ML) IV ONE (14:19)
[2024-06-24] MEDS: HYDROmorphone HCL 2 MG/ML VL/or syr IV PRN (14:50)
--- NOTE | 2024-06-24 16:06 | DVHHP2 ---
History Allergies: Coded Allergies: NO KNOWN ALLERGIES (Unverified , 06/22/24) Medications /ate of service: Jun 24, 2024 Referring Physician Hospitalist ; Dr. Kal Sal msws Reason for Consultation Bilateral tubo-ovarian abscess rule out sepsis, leukocytosis, pelvic pain. Patient has been on IV antibiotics for 48 hours and her white count continues to increase as well as increased pelvic abdominal pain. Patient has further desire for children History of Present Illness History Source: Patient, Other (Dr. BROWN D0 msws original initial admitting msws consultation. I am covering for the weekend she is not responding to IV antibiotics and increased pelvic abdominal pain) HPI Patient is history of section and significant bowel surgery as a child gastroschisis repair. She was admitted with bilateral tubo-ovarian what a ppeared to be abscesses and has not responded to antibiotics for 48 hours; she has increasing pain guarding and mild rebound. Home Meds No Active Prescriptions or Reported Meds Current Meds See list Chief Complaint of Abdominal/F: Abdominal pain (On my exam this a.m. she has guarding mild rebound and worsening pain. 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 Smoker: No Hx (Negative) (Dr. Mallory Aparicio for me obtunded get the house to call me a the house to I can not you sent me some phone number and I had left a voicemail she is still on the phone), Other (Occasional late) Review of Systems Constitutional: No symptom reported Ears, Nose, & Throat: No symptom reported Eyes: No symptom reported Pulmonary/Respiratory: No symptom reported Cardiovascular: No symptom reported Gastrointestinal: No symptom reported Genitourinary: No symptom reported Musculoskeletal: No symptom reported Skin: No symptom reported Psychiatric: No symptom reported Endocrine: No symptom reported Hemotologic/Lymphatic: No symptom reported H&P Exam Vital Signs Vital Signs Date Time Temp Pulse Resp B/P (MAP) Pulse Ox O2 Delivery O2 Flow Rate FiO2 06/24/24 08:57 100.0 119 17 105/66 (79) 98 100.0 06/23/24 20:00 Room Air* 0 21 General Appeara: Well developed, Well nourished, Normal Appearance, Mild distress Head Exam: Normal inspection Neck Exam: Normal inspection, Non-tender, Normal alignment Eye Exam: bilateral eye Normal inspection, bilateral eye PERRL, bilateral eye EOMI Ear Exam: bilateral ear Auricle normal, bilateral ear Canal normal, bilateral ear TM normal Nasal Exam: Normal inspection Mouth: Normal Inspection Pulmonary/Respiratory: Normal inspection, Normal breath sounds, Chest non- tender, Lungs clear Cardiovascular/Chest: Normal inspection, Regular rate, Normal Rhythm Abdominal Exam: Other (Mild rebound and guarding acute abdominal findings positive bowel sounds,) Abdominal Pain Onset Location: RLQ, LLQ, Suprapubic Rectal Exam: Deferred Back Exam: Normal inspection Pelvic Exam: External exam normal, Tender w/ cervical motion, Other (No abnormal vaginal discharge bilateral adnexal tenderness) Shoulder Exam: Normal inspection, Non-tender, Normal ROM Elbow/Forearm Exam: Normal inspection, Non-tender, Normal ROM Wrist Exam: Normal inspection, Non-tender, Normal ROM Hand Exam: Normal inspection, Non-tender, Normal ROM Hip exam: Normal inspection, Non-tender, Normal range of motion Legs: bilateral leg non-tender, bilateral leg normal inspection, bilateral leg normal range of motion, bilateral leg no evidence of injury Knees: bilateral knee non-tender, bilateral knee normal inspection, bilateral knee normal range of motion, bilateral knee no evidence of injury Ankle Exam: bilateral ankle Normal inspection, bilateral ankle Non-tender, bilateral ankle Normal range of motion, bilateral ankle No evidence of injury Foot: bilateral foot non-tender, bilateral foot normal inspection, bilateral foot normal range of motion, bilateral foot no evidence of injury Tendon/ Neuro: Normal sensation, Normal motor function, Normal tendon functions 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1 H 4.4-10.8 10^3/uL Red Blood Count 3.83 L 4.0-5.20 10^6/uL Hemoglobin 10.7 L 12.2-16.2 g/dL Hematocrit 32.6 #L 36.0-46.0 % Mean Corpuscular Volume 85.2 80.0-100.0 fL Mean Corpuscular Hemoglobin 28.0 28.0-32.0 pg Mean Corpuscular Hemoglobin Concent 32.8 32.0-36.0 g/dL Red Cell Distribution Width 13.8 11.8-14.3 % Platelet Count 342 140-450 10^3/uL Mean Platelet Volume 7.6 6.9-10.8 fL Neutrophils (%) (Auto) 94.4 H 37.0-80.0 % Lymphocytes (%) (Auto) 2.8 L 10.0-50.0 % Monocytes (%) (Auto) 2.6 0.0-12.0 % Eosinophils (%) (Auto) 0.0 0.0-7.0 % Basophils (%) (Auto) 0.2 0.0-2.0 % Neutrophils # (Auto) 26.5 H 1.6-8.6 10 ^3/uL Lymphocytes # (Auto) 0.8 0.4-5.4 10 ^3/uL Monocytes # (Auto) 0.7 0-1.3 10 ^3/uL Eosinophils # (Auto) 0 0-0.8 10 ^3/uL Basophils # (Auto) 0 0-0.2 10 ^3/uL Nucleated Red Blood Cells 0.0 % Sodium Level 138 136-145 mmol/L Potassium Level 3.6 3.5-5.1 mmol/L Chloride Level 108 H 98-107 mmol/L Carbon Dioxide Level 22 20-31 mmol/L Anion Gap 8 5-15 Blood Urea Nitrogen 6 L 9-23 mg/dL Creatinine 0.77 0.550-1.02 mg/dL Glomerular Filtration Rate Calc 107 >90 mL/min BUN/Creatinine Ratio 7.8 L 10.0-20.0 Serum Glucose 126 H 74-106 mg/dL Calcium Level 8.5 L 8.7-10.4 mg/dL Magnesium Level 1.8 1.6-2.6 mg/dL Total Bilirubin 1.3 H 0.2-1.0 mg/dL Aspartate Amino Transferase (AST) 10 L 13-40 U/L Alanine Aminotransferase (ALT) 19 7-40 U/L Alkaline Phosphatase 96 46-116 U/L Total Protein 7.0 5.7-8.2 g/dL Albumin 4.2 3.2-4.8 g/dL Prothrombin Time 12.3 H 9.3-11.8 sec Prothrombin Time INR 1.18 H 0.9-1.15 Activated Partial Thromboplast Time 29.9 24.5-34.5 SEC Vitamin B12 Level 399 211-911 pg/mL Vitamin D 25-Hydroxy 10.5 L 30.0-100 ng/mL Thyroid Stimulating Hormone (TSH) 1.15 0.55-4.78 uIU/mL Beta HCG, Quantitative 0.1 L 1.5-4.2 mIU/mL Rapid Plasma Reagin Non reactive Non Reactive HIV (1&2) Antibody Negative Negative CA 125 Antigen 21.9 0.0-38.1 U/mL Test 06/22/24 20:41 06/22/24 20:20 Range/Units Erythrocyte Sedimentation Rate 32 H 0-20 mm/hr C-Reactive Protein High Sensitivity 3.13 H <1.0 mg/dL Urine Color Yellow Yellow Urine Clarity Turbid H Clear Urine pH 6.0 5.0-9.0 Urine Specific [place] 1.035 1.001-1.035 Urine Protein 1+ H Negative Urine Ketones Trace Negative Urine Blood Negative Negative /uL Urine Nitrite Negative Negative Urine Bilirubin Negative Negative Urine Urobilinogen Normal Negative mg/dL Urine Leukocyte Esterase Negative Negative /uL Urine RBC 1 0 - 4 /hpf Urine Microscopic WBC 3 0-5 /HPF Urine Squamous Epithelial Cells Few <5 /hpf Urine Bacteria None seen None Seen /hpf Urine Mucus Few None Seen Urine Glucose Normal Normal mg/dL Urine Test Negative Negative Microbiology Date/Time Source Procedure Growth Status 06/23/24 01:56 Blood Blood Culture - Preliminary NO GROWTH AFTER 24 HOURS OF INCUBATION. Resulted 06/22/24 20:20 Voided Urine Urine Culture - Preliminary Resulted Assessment/Plan Primary Diagnosis Tubo-ovarian abscess, acute abdominal pain, severe leukocytosis not responding to IV antibiotics Admitting Diagnosis: Same 2' Diagnosis/Co-morbidities Consent: Risks benefits complications and alternatives discussed not limited to continued observation serial ultrasounds and IV antibiotics. Recommended by Dr. Doyle and myself exploratory laparotomy as she has had significant previous as well as gastroschisis so laparoscopy would be a dangerous approach. She desires further fertility so I assured her we would do as little as possible to prevent her from developing worsening sepsis and maintain her fertility. Regardless I did mentioned that she potentially may need partial or full right or left salpingo-oophorectomy and drain placement. I recommended we go through old Pfannenstiel incision. She has history of seromas postoperatively after her causing chronic pain and she continues to have that pain prior to this episode of pain and admission to the hospital. We discussed risks benefits complications alternatives not limited infection bleeding anesthesia acute chronic pain damage to adjacent organs fistula bowel damage ureter damage bladder muscles nerves vessels. She understands the risks transfusion associated risks of transfusion reaction hepatitis HIV to name a few. She also just understands the risk of decreased fertility associated with partial left or right and/or full salpingo-oophorectomy. She understands the risks associated with PID tubo-ovarian abscesses and fertility regardless whether surgery was performed. She also has general risks although rare that patient has had developed DVT PE mi stroke and despite these risks would adamantly like to proceed. All questions answered and encouraged her is Everardo doug at [phone] he speaks mostly Ukrainian and she prefers that I call her stepmother Felipa Spears at [phone] who will relay the message to Everardo. Plan Exploratory laparotomy drainage of bilateral tubo-ovarian abscesses possible partial or full right or left salpingo-oophorectomy and drain placement. 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
[2024-06-24] MEDS: MORPHINE SULFATE INJ 2 MG/ml SYRG IV PRN (17:29)
[2024-06-24] MEDS: POTASSIUM CHL 20MEQ/100ML 100 ML IV ONE (18:00)
[2024-06-24 19:06] LABS: Chlamydia Trachomatis, NAA Negative (Negative); Neisseria gonorrhoeae, NAA Negative (Negative)
[2024-06-24] MEDS: SIMETHICONE 80 MG CHEWABLE TABLET PO PRN (23:40)
[2024-06-25] VITALS (8 sets, daily range): BP systolic 97–117; BP diastolic 62–81; PULSE 100–117; RESP 17–20; TEMP 97.7–98.4; O2SAT 92–98
[2024-06-25 07:01] LABS: Basophils # (auto) 0 10 ^3/uL (0-0.2); Basophils % (auto) 0.1 % (0.0-2.0); Eosinophils # (auto) 0 10 ^3/uL (0-0.8); Hematocrit 30.3 % (36.0-46.0); Hemoglobin 10.2 g/dL (12.2-16.2); Lymphocytes # (auto) 1.1 10 ^3/uL (0.4-5.4); Lymphocytes % (auto) 6.7 % (10.0-50.0); Mean Corpuscular Hemoglobin 28.3 pg (28.0-32.0); Mean Corpuscular Hgb Conc. 33.6 g/dL (32.0-36.0); Mean Corpuscular Volume 84.2 fL (80.0-100.0); Monocytes # (auto) 0.6 10 ^3/uL (0-1.3); Monocytes % (auto) 3.9 % (0.0-12.0); Neutrophils # (auto) 14.2 10 ^3/uL (1.6-8.6); Neutrophils % (auto) 89.3 % (37.0-80.0); Platelet Count (auto) 340 10^3/uL (140-450); Red Cell Distribution Width 13.9 % (11.8-14.3); White Blood Cell 15.9 10^3/uL (4.4-10.8)
[2024-06-25 07:02] LABS: Alanine Aminotransferase 13 U/L (7-40); Albumin 3.8 g/dL (3.2-4.8); Alkaline Phosphatase 85 U/L (46-116); Anion Gap 9 (5-15); BUN/Creatinine Ratio 7.6 (10.0-20.0); Bilirubin, Total 0.8 mg/dL (0.2-1.0); Calcium 8.7 mg/dL (8.7-10.4); Carbon Dioxide 25 mmol/L (20-31); Chloride 105 mmol/L (98-107); Sodium 139 mmol/L (136-145); Total Protein 6.5 g/dL (5.7-8.2)
[2024-06-25 07:16] LABS: Aspartate Aminotransferase 11 U/L (13-40); Blood Urea Nitrogen 5 mg/dL (9-23); Glucose 128 mg/dL (74-106); Potassium 3.2 mmol/L (3.5-5.1)
[2024-06-25] MEDS: POTASSIUM EFFERVESENT TAB 25 MEQ GT ONE (08:46)
--- NOTE | 2024-06-25 09:31 | DVHPN2 ---
Chief Complaints Patient reports: No new complaints, Feels better, Other (Pain control 06/26 drainage right and left intraperitoneal Lt serosang only ) Nursing reports: No new complaints, No chest pain, No dizziness, No cough Objective Vitals Vital Signs Date Time Temp Pulse Resp B/P (MAP) Pulse Ox O2 Delivery O2 Flow Rate FiO2 06/25/24 09:04 98.0 106 17 110/75 (87) 96 98.0 06/24/24 20:00 Room Air* 0 21 Medications Current Medications Medications (Trade) Dose Ordered Sig/Cecy Route PRN Reason Start Time Stop Time Status Last Admin Dimethicone (Mylicon Tab) 120 mg QIDP PRN PO FOR STOMACH DISTRESS 06/24/24 23:30 06/24/24 23:40 General: Normal Lungs: Normal Cardiovascular: Normal Abdominal: Soft (Wounds c/d/i bilateral intraperitoneal drains Lt serosang only ) Musculoskeletal: Normal Extremities: Normal Skin: Normal Neurological: Normal Studies Laboratory Tests 06/25/24 06:05 Test 06/25/24 06:05 Range/Units Serum Glucose 128 H 74-106 mg/dL Ass/Plan Assessment Postop day 1 stable improved all parameters of her leukocytosis left shift improving afebrile clinically improved Plan Continue current management ambulate , increase IS MELLO WILL DO Jun 25, 2024 09:31
[2024-06-25] MEDS ORDERED: METOCLOPRAMIDE 10 mg/10ml ORAL soln PO ONE (11:25)
--- NOTE | 2024-06-25 13:42 | DVHPNRES ---
Progress Note Date Seen: Jun 25, 2024 Resident Creating Document: EDWIGE DANG RESIDENT Medical Necessity Reason Pt with a Central, PICC or Fol: No Subjective Review of Systems Maru Chu this is a 29-year-old female with past medical history of ? Ovarian seroma, section 8 months back, irregular menstruation who presented to the ER with a chief complaint of back pain and lower abdominal pain for the past 1 day. Patient has been experiencing purulent yellowish vaginal discharge for the past 3 days, reports onset of sharp pain and burning pain in the lower abdomen and the back for the past 1 day. Associated with fever, chills and nausea. Ambulation makes the pain worse. Patient is only sexually active with the , was always monogamous. Denies history of STIs. Says that her menstrual cycles have always been irregular, they have been regular for the past 2 years. And now they are again irregular. Past medical history, surgical history: See above Social history: Denies smoking/drinking/illicit drug use. Medications: None reported Allergies: None PCP is in [place], patient does not follow up with them anymore 06/23 - Patient seen and examined at bedside. Started doxy, [place], ceftriaxone 06/22. OBGYN consulted-recommended monitoring for 24 hours on IV antibiotics, otherwise consider surgeon. 06/24-patient seen and examined at the bedside. WBC increased to 28, 101 F fever, denies chills. Status post xploratory laparotomy drainage of bilateral tubo- ovarian abscesses possible partial or full right or left salpingo-oophorectomy and drain placement. 06/25/2024-patient was seen today for clinical evaluation. Labs and chart reviewed. Leukocytosis trending down, WBC 22.8> 27.2> 28.1> 15.9. Patient reported her pain has improved a lot. Patient was febrile last night 100.9. Patient reported passing some gases. Bowel sounds present. Patient with a bilateral intraperitoneal drainage with serosanguineous drainage 10-12 mL so far. Ordered physical therapy. Plan is to discontinue Shukla's catheter once patient can ambulate well. Patient tested nonreactive for RPR, negative for chlamydia trachomatis, Neisseria gonorrhea negative,HIV 1 and 2. Objective vital signs Vital Sign Date Time Temp Pulse Resp B/P (MAP) Pulse Ox O2 Delivery O2 Flow Rate FiO2 06/25/24 09:04 98.0 106 17 110/75 (87) 96 98.0 06/25/24 08:00 Room Air* 0 21 Total Intake and Output 06/24/24 06/24/24 06/25/24 15:00 23:00 07:00 Intake Total 50 ml 300 ml 1175 ml Output Total 350 ml 90 ml 90 ml Balance -300 ml 210 ml 1085 ml medications Current Medications Medications Dose Ordered Sig/Cecy Route Start Time Stop Time Status Last Admin Dose Admin Ceftriaxone Sodium 50 ml @ 100 mls/hr DAILY@09 IV 06/24/24 09:00 06/25/24 08:47 100 MLS/HR Doxycycline Hyclate 100 ml @ 50 mls/hr Q12H IV 06/23/24 01:45 06/25/24 13:29 50 MLS/HR Sodium Chloride 1,000 ml @ 125 mls/hr Q8H IV 06/23/24 01:45 06/25/24 09:45 125 MLS/HR Metronidazole 100 ml @ 100 mls/hr Q8HR IV 06/23/24 03:00 06/25/24 05:16 100 MLS/HR Acetaminophen/ Hydrocodone Bitart 1 tab Q6HPRN PRN PO 06/23/24 14:45 06/25/24 11:46 1 TAB Ergocalciferol 50,000 unit Q7D PO 06/23/24 16:15 06/23/24 18:22 50,000 UNIT Morphine Sulfate 1 mg Q4HP PRN IV 06/24/24 05:00 06/24/24 17:29 1 MG Acetaminophen 1,000 mg Q8H PO 06/24/24 07:00 06/25/24 06:09 1,000 MG Ondansetron HCl 4 mg Q4HPRN PRN IV 06/24/24 06:30 06/24/24 06:36 4 MG Dimethicone 120 mg QIDP PRN PO 06/24/24 23:30 06/25/24 11:45 120 MG Examination Patient lying in bed, in no acute distress General: Well-built, afebrile, palor, mucosae are moist Cardiovascular: Regular S1 and S2. No murmurs, gallops or rubs. No JVD elevation. No pedal edema Respiratory: Normal B/L air entry on room air. Clear lung sounds on auscultation Abdomen: Bowel sounds positive+, bilateral intraperitoneal drain, serosanguineous fluid collection in the drain tube Genitourinary: Deferred MSK/skin: Mobilizes 4 limbs. Skin is dry and warm Neurological: No motor, no sensitive deficits, normal speech. Pupils are isocoric and reactive. Psych/Mental Status: A/Ox3 laboratory and microbiology Laboratory Tests 06/25/24 06:05 Test 06/25/24 06:05 Range/Units Serum Glucose 128 H 74-106 mg/dL Microbiology Date/Time Source Procedure Growth Status 06/24/24 13:25 Other Gram Stain - Final Resulted 06/24/24 13:25 Other Anaerobic Culture - Preliminary Resulted 06/24/24 13:25 Other Aerobic Culture - Preliminary Resulted 06/23/24 23:40 Vaginal Vaginal Culture - Preliminary Resulted 06/23/24 01:56 Blood Blood Culture - Preliminary NO GROWTH AFTER 48 HOURS OF INCUBATION. Resulted 06/22/24 20:20 Voided Urine Urine Culture - Final Complete Problem List/Assessment/Plan Problem List/Assessment/Plan Problem List/Assessment/Plan-status post exploratory laparotomy day 1. B ilateral intraperitoneal drain, serosanguineous fluid 10-12 mL so far. Leukocyte esterase is trending down. Patient was severe last night 100.9. Ordered physical therapy. If patient ambulated well plan is to discontinue Shukla's catheter. Patient tested nonreactive for RPR, negative for chlamydia trachomatis, Neisseria gonorrhea negative,HIV 1 and 2 Sepsis likely secondary to bilateral tubo-ovarian abscess and PID status post Exploratory laparotomy drainage of bilateral tubal ovarian abscesses 06/24 Polycystic ovarian syndrome Rule out STI Rule out hepatitis Lactic acidosis-resolved Febrile episodes Continue IV ceftriaxone, IV metronidazole, IV doxycycline starting 06/22 Patient tested nonreactive for RPR, negative for chlamydia trachomatis, Neisseria gonorrhea negative,HIV 1 and 2-, Vaginal culture, hepatitis, wet count, blood culture pending Continue IV fluids [place] and Toradol IV for pain control Underwent Exploratory laparotomy on 06/24/[id number] oophorectomy, left- sided salpingo-oophorectomy, Tylenol 1 g Q 8 scheduled Blood culture no growth so far History of ulcerative colitis-not on medication Acute gastroenteritis, likely infectious Continue IV ceftriaxone and IV metronidazole Clear liquid diet Obesity Lifestyle modification advised Vitamin-D deficiency Supplemented Plan discussed with patient in which all questions have been answered Goals of care discussed with patient for more than 29 minutes, full code status Case discussed with Dr. Haskins Plan discussed with: Patient Plan discussed with: Patient, Spouse, Other (RN) Date of Service: Jun 25, 2024 Billing Provider: CHELSEA HASKINS MD Common Visit Codes: [id number] INP/OBS CARE(HIGH) EDWIGE DANG RESIDENT Jun 25, 2024 13:42 CHELSEA HASKINS MD Jun 25, 2024 17:50
[2024-06-26] VITALS (7 sets, daily range): BP systolic 123–138; BP diastolic 80–91; PULSE 98–110; RESP 17–20; TEMP 98.1–99.5; O2SAT 92–97
--- NOTE | 2024-06-26 05:39 | DVHPN2 ---
Chief Complaints Patient reports: No new complaints, Feels better, Other (Pain control 06/26 drainage right and left intraperitoneal Lt serosang only ) Nursing reports: No new complaints, No chest pain, No dizziness, No cough Objective Vitals Vital Signs Date Time Temp Pulse Resp B/P (MAP) Pulse Ox O2 Delivery O2 Flow Rate FiO2 06/26/24 04:27 111 18 126/85 06/26/24 01:00 98.3 96 98.3 06/25/24 20:00 Room Air* 0 21 General: Normal Lungs: Normal Cardiovascular: Normal Abdominal: Soft (Wounds c/d/i bilateral intraperitoneal drains Lt serosang only ) Musculoskeletal: Normal Extremities: Normal Skin: Normal Neurological: Normal Studies Laboratory Tests 06/25/24 06:05 Test 06/25/24 06:05 Range/Units Serum Glucose 128 H 74-106 mg/dL Ass/Plan Assessment Postop day 2 stable improved all parameters of her leukocytosis left shift improving afebrile clinically improved All cultures 72 hrs Neg Growth out of js puss/ anaerobic odor interesting Plan continue Abx , advance care MELLO WILL DO Jun 26, 2024 05:39
[2024-06-26 07:32] LABS: Basophils # (auto) 0 10 ^3/uL (0-0.2); Basophils % (auto) 0.2 % (0.0-2.0); Eosinophils # (auto) 0.1 10 ^3/uL (0-0.8); Eosinophils % (auto) 0.7 % (0.0-7.0); Hematocrit 28.8 % (36.0-46.0); Hemoglobin 9.6 g/dL (12.2-16.2); Lymphocytes # (auto) 1.5 10 ^3/uL (0.4-5.4); Lymphocytes % (auto) 11.1 % (10.0-50.0); Mean Corpuscular Hemoglobin 27.9 pg (28.0-32.0); Mean Corpuscular Hgb Conc. 33.1 g/dL (32.0-36.0); Mean Corpuscular Volume 84.1 fL (80.0-100.0); Monocytes # (auto) 0.5 10 ^3/uL (0-1.3); Neutrophils # (auto) 11.1 10 ^3/uL (1.6-8.6); Platelet Count (auto) 382 10^3/uL (140-450); Red Blood Cells 3.42 10^6/uL (4.0-5.20); Red Cell Distribution Width 13.9 % (11.8-14.3); White Blood Cell 13.2 10^3/uL (4.4-10.8)
[2024-06-26 07:41] LABS: Anion Gap 7 (5-15); Carbon Dioxide 25 mmol/L (20-31); Chloride 106 mmol/L (98-107); Sodium 138 mmol/L (136-145)
[2024-06-26 07:46] LABS: Calcium 8.7 mg/dL (8.7-10.4); Potassium 3.2 mmol/L (3.5-5.1)
[2024-06-26 07:47] LABS: BUN/Creatinine Ratio 9.4 (10.0-20.0); Blood Urea Nitrogen 6 mg/dL (9-23); Glucose 95 mg/dL (74-106); Magnesium 1.9 mg/dL (1.6-2.6)
[2024-06-26 10:33] LABS: Hepatitis B Surface Antibody Negative (Negative); Hepatitis B Surface Antigen Negative (Negative); Hepatitis C Antibody Negative (Negative)
[2024-06-26] MEDS ORDERED: ERGO1CAP23 PO (12:09)
[2024-06-26] MEDS ORDERED: SIME80CH13 PO (12:09)
[2024-06-26] MEDS ORDERED: AUG875T PO (12:09)
[2024-06-26] MEDS ORDERED: PANT1INJ3 PO (12:09)
[2024-06-26] MEDS: POTASSIUM EFFERVESENT TAB 25 MEQ PO ONE ×2 (12:52→18:13)
[2024-06-26] MEDS: NEUTRA-PHOS TABLET PO ONE (12:53)
[2024-06-26] MEDS: PANTOPRAZOLE 40 MG/10 ML VIAL INJ IV SCH (13:16)
--- NOTE | 2024-06-26 13:52 | DVHPNRES ---
Progress Note Date Seen: Jun 26, 2024 Resident Creating Document: MIKE NARAYAN RESIDENT Medical Necessity Reason Pt with a Central, PICC or Fol: No Subjective Review of Systems Maru Vlad this is a 29-year-old female with past medical history of ? Ovarian seroma, section 8 months back, irregular menstruation who presented to the ER with a chief complaint of back pain and lower abdominal pain Patient seen and examined at the bedside. Postoperative day 3, Patient reported improvement in her symptoms except mild abdominal pain. Advancing diet to full liquid. Patient reports: No new complaints, Feels better Objective vital signs Vital Sign Date Time Temp Pulse Resp B/P (MAP) Pulse Ox O2 Delivery O2 Flow Rate FiO2 06/26/24 09:00 99.5 109 20 138/91 (107) 97 99.5 06/25/24 20:00 Room Air* 0 21 Total Intake and Output 06/25/24 06/25/24 06/26/24 15:00 23:00 07:00 Intake Total 50 ml 300 ml 325 ml Output Total 10 ml Balance 50 ml 300 ml 315 ml medications Current Medications Medications Dose Ordered Sig/Cecy Route Start Time Stop Time Status Last Admin Dose Admin Ceftriaxone Sodium 50 ml @ 100 mls/hr DAILY@09 IV 06/24/24 09:00 06/26/24 08:58 100 MLS/HR Doxycycline Hyclate 100 ml @ 50 mls/hr Q12H IV 06/23/24 01:45 06/26/24 13:26 50 MLS/HR Sodium Chloride 1,000 ml @ 125 mls/hr Q8H IV 06/23/24 01:45 06/26/24 09:45 125 MLS/HR Metronidazole 100 ml @ 100 mls/hr Q8HR IV 06/23/24 03:00 06/26/24 05:38 100 MLS/HR Acetaminophen/ Hydrocodone Bitart 1 tab Q6HPRN PRN PO 06/23/24 14:45 06/26/24 12:56 1 TAB Ergocalciferol 50,000 unit Q7D PO 06/23/24 16:15 06/23/24 18:22 50,000 UNIT Morphine Sulfate 1 mg Q4HP PRN IV 06/24/24 05:00 06/26/24 03:57 1 MG Acetaminophen 1,000 mg Q8H PO 06/24/24 07:00 06/26/24 06:11 1,000 MG Ondansetron HCl 4 mg Q4HPRN PRN IV 06/24/24 06:30 06/24/24 06:36 4 MG Dimethicone 120 mg QIDP PRN PO 06/24/24 23:30 06/26/24 06:19 120 MG Pantoprazole Sodium 40 mg DAILY IV 06/26/24 10:00 06/26/24 13:16 40 MG Examination Pt is lying on bed General Appearance: Alert, Oriented X3, Cooperative, Not in acute distress HEENT: Atraumatic, Mucous membranes moist/pink Respiratory: Clear to auscultation, Normal air movement, No added sounds Cardiovascular: Regular rate, Normal S1, Normal S2, No murmurs Abdominal: Bowel sounds positive+, bilateral intraperitoneal drain, serosanguineous fluid collection in the drain tube Extremities: No edema, Normal pulses, No tenderness/swelling Skin: No Significant rash, except past surgical scars Neuro: Normal speech, sensorimotor deficits none Psych/Mental Status: Mental status NL, Mood NL Nurse was there as sharperone during examination laboratory and microbiology Laboratory Tests 06/26/24 06:18 Test 06/26/24 06:18 Range/Units Serum Glucose 95 74-106 mg/dL Microbiology Date/Time Source Procedure Growth Status 06/24/24 13:25 Other Gram Stain - Final Resulted 06/24/24 13:25 Other Anaerobic Culture - Preliminary Resulted 06/24/24 13:25 Other Aerobic Culture - Preliminary Resulted 06/23/24 23:40 Vaginal Vaginal Culture - Preliminary Resulted 06/23/24 01:56 Blood Blood Culture - Preliminary NO GROWTH AFTER 72 HOURS OF INCUBATION. Resulted 06/22/24 20:20 Voided Urine Urine Culture - Final Complete Labs and/or images reviewed: Labs reviewed by me, Image(s) reviewed by me Problem List/Assessment/Plan Problem List/Assessment/Plan Sepsis likely secondary to bilateral tubo-ovarian abscess and PID status post Exploratory laparotomy drainage of bilateral tubal ovarian abscesses 06/24 Polycystic ovarian syndrome Rule out STI Rule out hepatitis Lactic acidosis-resolved Febrile episodes Continue IV ceftriaxone, IV metronidazole, IV doxycycline starting 06/22 Patient tested nonreactive for RPR, negative for chlamydia trachomatis, Neisseria gonorrhea negative,HIV 1 and 2-, Vaginal culture, hepatitis, wet count, blood culture pending Continue IV fluids [place] and Toradol IV for pain control Underwent Exploratory laparotomy on 06/24/[id number] oophorectomy, left- sided salpingo-oophorectomy, Tylenol 1 g Q 8 scheduled Blood culture no growth so far History of ulcerative colitis-not on medication Acute gastroenteritis, likely infectious Continue IV ceftriaxone and IV metronidazole Clear liquid diet Obesity Lifestyle modification advised Vitamin-D deficiency Supplemented SCDs Protonix Plan discussed with patient in which all questions have been answered Goals of care discussed with patient for more than 29 minutes, full code status Case discussed with Dr. Cunningham. Plan discussed with: Patient My Orders My Orders Orders - MIKE NARAYAN Procedure Category Date Status Time Pantoprazole PHA 06/26/24 In Process (Protonix) 10:00 Potassium LAB 06/26/24 Logged 12:00 Full Liq Diet DIET 06/26/24 Transmitted Lunch MIKE NARAYAN RESIDENT Jun 26, 2024 13:52
[2024-06-27] VITALS (8 sets, daily range): BP systolic 117–133; BP diastolic 75–93; PULSE 91–108; RESP 15–18; TEMP 97.9–99.4; O2SAT 91–100
[2024-06-27 07:40] LABS: Basophils # (auto) 0.1 10 ^3/uL (0-0.2); Basophils % (auto) 0.5 % (0.0-2.0); Eosinophils # (auto) 0.3 10 ^3/uL (0-0.8); Eosinophils % (auto) 2.7 % (0.0-7.0); Hemoglobin 9.9 g/dL (12.2-16.2); Lymphocytes # (auto) 1.8 10 ^3/uL (0.4-5.4); Lymphocytes % (auto) 16.2 % (10.0-50.0); Mean Corpuscular Hemoglobin 27.6 pg (28.0-32.0); Mean Corpuscular Hgb Conc. 33.1 g/dL (32.0-36.0); Mean Corpuscular Volume 83.3 fL (80.0-100.0); Monocytes # (auto) 0.8 10 ^3/uL (0-1.3); Monocytes % (auto) 7.3 % (0.0-12.0); Neutrophils # (auto) 8.3 10 ^3/uL (1.6-8.6); Neutrophils % (auto) 73.3 % (37.0-80.0); Platelet Count (auto) 406 10^3/uL (140-450); Red Cell Distribution Width 13.8 % (11.8-14.3); White Blood Cell 11.3 10^3/uL (4.4-10.8)
[2024-06-27 09:03] LABS: Alanine Aminotransferase 10 U/L (7-40); Albumin 3.9 g/dL (3.2-4.8); Alkaline Phosphatase 102 U/L (46-116); Anion Gap 8 (5-15); Aspartate Aminotransferase 13 U/L (13-40); BUN/Creatinine Ratio 11.5 (10.0-20.0); Calcium 8.9 mg/dL (8.7-10.4); Carbon Dioxide 26 mmol/L (20-31); Glucose 83 mg/dL (74-106); Total Protein 6.8 g/dL (5.7-8.2)
[2024-06-27 09:04] LABS: Bilirubin, Total 0.5 mg/dL (0.2-1.0)
[2024-06-27 09:05] LABS: Blood Urea Nitrogen 7 mg/dL (9-23); Chloride 104 mmol/L (98-107); Potassium 3.4 mmol/L (3.5-5.1); Sodium 138 mmol/L (136-145)
[2024-06-27] MEDS: POTASSIUM EFFERVESENT TAB 25 MEQ PO ONE (13:55)
--- NOTE | 2024-06-27 15:39 | DVHPNRES ---
Progress Note Date Seen: Jun 27, 2024 Resident Creating Document: MIKE NARAYAN RESIDENT Medical Necessity Reason Pt with a Central, PICC or Fol: No Subjective Review of Systems Patient seen and examined at the bedside. Patient reported improvement in her symptoms since admission. No new complaints. Patient reports: No new complaints, Feels better Objective vital signs Vital Sign Date Time Temp Pulse Resp B/P (MAP) Pulse Ox O2 Delivery O2 Flow Rate FiO2 06/27/24 13:00 98.1 96 15 120/90 (100) 100 98.1 06/27/24 07:55 Room Air* 0 21 Total Intake and Output 06/26/24 06/26/24 06/27/24 15:00 23:00 07:00 Intake Total 50 ml 800 ml 1200 ml Output Total 30 ml 15 ml Balance 50 ml 770 ml 1185 ml medications Current Medications Medications Dose Ordered Sig/Cecy Route Start Time Stop Time Status Last Admin Dose Admin Ceftriaxone Sodium 50 ml @ 100 mls/hr DAILY@09 IV 06/24/24 09:00 06/27/24 08:50 100 MLS/HR Doxycycline Hyclate 100 ml @ 50 mls/hr Q12H IV 06/23/24 01:45 06/27/24 13:55 50 MLS/HR Sodium Chloride 1,000 ml @ 125 mls/hr Q8H IV 06/23/24 01:45 06/27/24 13:55 125 MLS/HR Metronidazole 100 ml @ 100 mls/hr Q8HR IV 06/23/24 03:00 06/27/24 13:55 100 MLS/HR Acetaminophen/ Hydrocodone Bitart 1 tab Q6HPRN PRN PO 06/23/24 14:45 06/27/24 08:49 1 TAB Ergocalciferol 50,000 unit Q7D PO 06/23/24 16:15 06/23/24 18:22 50,000 UNIT Morphine Sulfate 1 mg Q4HP PRN IV 06/24/24 05:00 06/27/24 02:16 1 MG Acetaminophen 1,000 mg Q8H PO 06/24/24 07:00 06/27/24 05:51 1,000 MG Ondansetron HCl 4 mg Q4HPRN PRN IV 06/24/24 06:30 06/24/24 06:36 4 MG Dimethicone 120 mg QIDP PRN PO 06/24/24 23:30 06/26/24 21:47 120 MG Pantoprazole Sodium 40 mg DAILY IV 06/26/24 10:00 06/27/24 08:50 40 MG laboratory and microbiology Laboratory Tests 06/27/24 06:17 Test 06/27/24 06:17 Range/Units Serum Glucose 83 74-106 mg/dL Microbiology Date/Time Source Procedure Growth Status 06/24/24 13:25 Other Gram Stain - Final Resulted 06/24/24 13:25 Anaerobic Culture - Preliminary Bacteroides uniformis Resulted 06/24/24 13:25 Other Aerobic Culture - Preliminary Resulted 06/23/24 23:40 Vaginal Vaginal Culture - Preliminary Resulted 06/23/24 01:56 Blood Blood Culture - Preliminary NO GROWTH AFTER 72 HOURS OF INCUBATION. Resulted 06/22/24 20:20 Voided Urine Urine Culture - Final Complete Problem List/Assessment/Plan Problem List/Assessment/Plan Sepsis likely secondary to bilateral tubo-ovarian abscess and PID status post Exploratory laparotomy drainage of bilateral tubal ovarian abscesses 06/24 Polycystic ovarian syndrome Rule out STI Rule out hepatitis Lactic acidosis-resolved Febrile episodes Continue IV ceftriaxone, IV metronidazole, IV doxycycline starting 06/22 Patient tested nonreactive for RPR, negative for chlamydia trachomatis, Neisseria gonorrhea negative,HIV 1 and 2-, Vaginal culture, hepatitis, wet count, blood culture pending Continue IV fluids [place] and Toradol IV for pain control Underwent Exploratory laparotomy on 06/24/[id number] oophorectomy, left- sided salpingo-oophorectomy, Tylenol 1 g Q 8 scheduled Blood culture no growth so far History of ulcerative colitis-not on medication Acute gastroenteritis, likely infectious Continue IV ceftriaxone and IV metronidazole Clear liquid diet Obesity Lifestyle modification advised Vitamin-D deficiency Supplemented SCDs Protonix Plan discussed with patient in which all questions have been answered Goals of care discussed with patient for more than 29 minutes, full code status Case discussed with Dr. Cunningham. My Orders My Orders Orders - MIKE NARAYAN RESIDENT Procedure Category Date Status Time Discontinue Tele FELICITAS 06/27/24 In Process 13:27 Transfer Orders XFER 06/27/24 Transmitted 13:27 Dietary Evaluation Review Comments: 1) Advance diet as medically feasible 2) Ergocalciferol 50,000 1 tab weekly 3) Continue current plan of care Expected Outcomes/Goals: Pt will meet >75% estimated needs Fu 3-5 days MIKE NARAYAN RESIDENT Jun 27, 2024 15:39
--- NOTE | 2024-06-27 16:12 | DVHDSRES ---
Discharge Summary Date of Admission Resident Creating Document: MIKE NARAYAN RESIDENT Jun 23, 2024 at 01:34 Date of Discharge: Jun 27, 2024 Admitting Diagnosis Bilateral tubo-ovarian abscess Labs/Diagnostic Data: Laboratory Results Test 06/27/24 06:17 06/26/24 09:50 06/26/24 06:18 06/24/24 09:13 White Blood Count 11.3 10^3/uL (4.4-10.8) Red Blood Count 3.60 10^6/uL (4.0-5.20) Hemoglobin 9.9 g/dL (12.2-16.2) Hematocrit 30.0 % (36.0-46.0) Mean Corpuscular Volume 83.3 fL (80.0-100.0) Mean Corpuscular Hemoglobin 27.6 pg (28.0-32.0) Mean Corpuscular Hemoglobin Concent 33.1 g/dL (32.0-36.0) Red Cell Distribution Width 13.8 % (11.8-14.3) Platelet Count 406 10^3/uL (140-450) Mean Platelet Volume 8.1 fL (6.9-10.8) Neutrophils (%) (Auto) 73.3 % (37.0-80.0) Lymphocytes (%) (Auto) 16.2 % (10.0-50.0) Monocytes (%) (Auto) 7.3 % (0.0-12.0) Eosinophils (%) (Auto) 2.7 % (0.0-7.0) Basophils (%) (Auto) 0.5 % (0.0-2.0) Neutrophils # (Auto) 8.3 10 ^3/uL (1.6-8.6) Lymphocytes # (Auto) 1.8 10 ^3/uL (0.4-5.4) Monocytes # (Auto) 0.8 10 ^3/uL (0-1.3) Eosinophils # (Auto) 0.3 10 ^3/uL (0-0.8) Basophils # (Auto) 0.1 10 ^3/uL (0-0.2) Nucleated Red Blood Cells 0.0 % Sodium Level 138 mmol/L (136-145) Potassium Level 3.4 mmol/L (3.5-5.1) Chloride Level 104 mmol/L (98-107) Carbon Dioxide Level 26 mmol/L (20-31) Anion Gap 8 (5-15) Blood Urea Nitrogen 7 mg/dL (9-23) Creatinine 0.61 mg/dL (0.550-1.02) Glomerular Filtration Rate Calc 124 mL/min (>90) BUN/Creatinine Ratio 11.5 (10.0-20.0) Serum Glucose 83 mg/dL (74-106) Calcium Level 8.9 mg/dL (8.7-10.4) Magnesium Level 2.0 mg/dL (1.6-2.6) Total Bilirubin 0.5 mg/dL (0.2-1.0) Aspartate Amino Transferase (AST) 13 U/L (13-40) Alanine Aminotransferase (ALT) 10 U/L (7-40) Alkaline Phosphatase 102 U/L (46-116) Total Protein 6.8 g/dL (5.7-8.2) Albumin 3.9 g/dL (3.2-4.8) Stool Occult Blood Sample #3 Negative (Negative) Stool for White Cells None seen Phosphorus Level 2.0 mg/dL (2.4-5.1) Lactic Acid Level 1.2 mmol/L (0.4-2.0) Test 06/23/24 07:48 06/23/24 01:56 06/22/24 20:41 06/22/24 20:20 Prothrombin Time 12.3 sec (9.3-11.8) Prothrombin Time INR 1.18 (0.9-1.15) Activated Partial Thromboplast Time 29.9 SEC (24.5-34.5) Vitamin B12 Level 399 pg/mL (211-911) Vitamin D 25-Hydroxy 10.5 ng/mL (30.0-100) Thyroid Stimulating Hormone (TSH) 1.15 uIU/mL (0.55-4.78) Beta HCG, Quantitative 0.1 mIU/mL (1.5-4.2) Rapid Plasma Reagin Non reactive (Non Reactive) Hepatitis B Surface Antigen Negative (Negative) Hepatitis B Surface Antibody Negative (Negative) Hepatitis C Antibody Negative (Negative) HIV (1&2) Antibody Negative (Negative) CA 125 Antigen 21.9 U/mL (0.0-38.1) Erythrocyte Sedimentation Rate 32 mm/hr (0-20) C-Reactive Protein High Sensitivity 3.13 mg/dL (<1.0) Urine Color Yellow (Yellow) Urine Clarity Turbid (Clear) Urine pH 6.0 (5.0-9.0) Urine Specific [place] 1.035 (1.001-1.035) Urine Protein 1+ (Negative) Urine Ketones Trace (Negative) Urine Blood Negative /uL (Negative) Urine Nitrite Negative (Negative) Urine Bilirubin Negative (Negative) Urine Urobilinogen Normal mg/dL (Negative) Urine Leukocyte Esterase Negative /uL (Negative) Urine RBC 1 /hpf (0 - 4) Urine Microscopic WBC 3 /HPF (0-5) Urine Squamous Epithelial Cells Few /hpf (<5) Urine Bacteria None seen /hpf (None Seen) Urine Mucus Few (None Seen) Urine Glucose Normal mg/dL (Normal) Urine Test Negative (Negative) Chlamydia trachomatis (DM) Negative (Negative) Neisseria gonorrhoeae (DM) Negative (Negative) Other Laboratory Tests 06/27/24 06:17 Brief Hx & Hospital Course: Maru Chu this is a 29-year-old female with past medical history of ? Ovarian seroma, section 8 months back, irregular menstruation who presented to the ER with a chief complaint of back pain and lower abdominal pain for the past 1 day. Patient has been experiencing purulent yellowish vaginal discharge for the past 3 days, reports onset of sharp pain and burning pain in the lower abdomen and the back for the past 1 day. Associated with fever, chills and nausea. Ambulation makes the pain worse.Patient is only sexually active with the , was always monogamous. Denies history of STIs. Says that her menstrual cycles have always been irregular, they have been regular for the past 2 years. And now they are again irregular. Patient required hospital admission for further evaluation management of abdominal pain and sepsis. CT abdominal pelvis showed concentric wall thickening of the distal colon with adjacent fat stranding, suspicious for infectious/inflammatory colitis and Heterogeneous tubular fluid collections are seen in the region of the bilateral adnexa measuring up to 5.8 cm on the right and up to 6.8 cm in the left. Differential considerations include tubo-ovarian abscess, hydrosalpinx, or other etiology. Recommend pelvic ultrasound for further evaluation. pelvic ultrasound showed cystic lesions in both ovaries along with thickened endometrial canal. OBGYN consulted-recommended IV antibiotics IV ceftriaxone, IV metronidazole, IV doxycycline, re-evaluate in 24 hours to see if improvement, no improvement then need surgery. on 06/24/2024 patient underwent Exploratory laparotomy drainage of right polycystic ovary, left tubal ovarian abscesses, lysis of adhesions, bilateral intraperitoneal adnexal 15 mm Meng drains, patient tolerated the procedure well and culture sent. Vaginal culture, HIV, RPR, hepatitis, wet count, blood culture negative. Continuously monitored the patient and MIRIAM drains. Patient condition was improved, hemodynamically stable and in condition to be discharged home amoxicillin and clavulanate. Patient was advised about healthy lifestyle modifications including diet and exercise. Patient was advised to follow up with OBGYN in 1 week after the discharge. Pt is lying on bed General Appearance: Alert, Oriented X3, Cooperative, Not in acute distress HEENT: Atraumatic, Mucous membranes moist/pink Respiratory: Clear to auscultation, Normal air movement, No added sounds Cardiovascular: Regular rate, Normal S1, Normal S2, No murmurs Abdominal: Bowel sounds positive+, bilateral intraperitoneal drain, serosanguineous fluid collection in the drain tube Extremities: No edema, Normal pulses, No tenderness/swelling Skin: No Significant rash, except past surgical scars Neuro: Normal speech, sensorimotor deficits none Psych/Mental Status: Mental status NL, Mood NL Nurse was there as sharperone during examination Operations or Procedures Exam: CT CT AB PEL WO CON-NO ORAL OR IV 1. Concentric wall thickening of the distal colon with adjacent fat stranding, suspicious for infectious/inflammatory colitis . 2. Heterogeneous tubular fluid collections are seen in the region of the bilateral adnexa measuring up to 5.8 cm on the right and up to 6.8 cm in the left. Differential considerations include tubo-ovarian abscess, hydrosalpinx, or other etiology. Recommend pelvic ultrasound for further evaluation. TECHNIQUE: Multiple real-time grayscale transabdominal sonographic images along with color and duplex Doppler of the uterus and ovaries were obtained. IMPRESSION: 1. Uterus normal. 2. Thickened endometrial canal. 3. Cystic lesions in both ovaries. 4. Normal Doppler imaging of the right and left ovaries Bilateral tubo-ovarian abscesses pelvic pain Report Details Date: 06/24/24 Preop Diagnosis: Bilateral tubo-ovarian abscesses pelvic pain Postop Diagnosis: Same the s Surgeon: Krysta Ontiveros Border Measurer: Zackery stover/RN Anesthesiologist: Susanne GASPAR Anesthesia: General Drains: Bilateral intraperitoneal adnexal 15 mm non tapered Meng drains. Shukla to leg gravity. Implant: None Consent: The patient was informed of the risks and benefits of the procedure. These include but are not limited to complications of anesthesia, postoperative infection, incomplete relief of symptoms, recurrence of symptoms, damage to blood vessels, nerves and tendons, deep venous thrombosis, pulmonary embolism and possible need for repeat surgery in the future. Complications: None Estimated Blood Loss: 100 cc Fluids: See anesthesia log Findings: Bilateral dense adnexal adhesions, gross peritoneal pause on entry into the pelvic cavity, left large tubo-ovarian abscesses, js pus, large right polycystic encapsulated ovary and stretched fallopian tube questionable patency and/or function. Indications for Surgery: Tubo-ovarian abscesses, increasing white count, increased pain Name of Procedure Performed Exploratory laparotomy drainage of right polycystic ovary, left tubal ovarian abscesses, lysis of adhesions, bilateral intraperitoneal adnexal 15 mm Meng drains Procedure Details Procedure Details: Patient taken the operating room placed in supine position general anesthesia performed without difficulty she was then prepped and draped sterile fashion [facility] shows her to have no vaginal discharge or bleeding normal-appearing cervix cervix grasped with sharp tooth tenaculum she sounded to 7 cm and then a Kroner uterine manipulator was placed. We placed a Shukla with clear urine noted. We redraped the peritoneum gloves changed attention turned to the abdomen low Pfannenstiel incision made through old Pfannenstiel incision scar down to the rectus fascia nicked in midline carried laterally rectus fascia dissected superior and inferiorly peritoneum identified entered with sharp dissection peritoneal incision was extended with [place] scissors and then the carefully the O'James O'Browning self-retaining retractor was placed. We then tediously dissected some colon and small bowel filmy adhesions off of the posterior cul-de-sac and uterus and isolated the left and right adnexa we turned attention to the right adnexa and did some lysis of adhesions from the small bowel did not I was not able to appreciate the appendix. Tube looked healthy but somewhat stretched to almost a Warren doubt functional or patent right ovary about 5 times normal size polycystic the right ovary was bivalved and the ovarian drilling was performed to assure no pelvic abscess with it within this hard polycystic ovary which appeared to be about 3 x 5-1/2 cm in diameter only thing expressed from the ovary after drilling and bivalving was simple cysts. No no pus noted. Incidentally on entering the peritoneum it was obvious the pus was exuding from the peritoneum and 3 cultures were taken g stain anaerobic and aerobic cultures. We then turned our attention to the left adnexa with much tedious and time consuming blunt and sharp dissection the colon was removed from the left posterior cul-de-sac and left adnexa she had a large 7 cm by roughly 3-1/2 cm 4 cm pelvic tubo-ovarian abscess which ruptured in an attempt to dissect it out with malodorous anaerobic smell 3 additional cultures were performed anaerobe Gram stain and aerobic cultures. At this point using tedious blunt and sharp dissection the left adnexa was piecemeal out with care to avoid damage to the left ureter and/or colon. We copiously irrigated the entire abdomen once all this previous was performed assured hemostasis she had some oozing from the left adnexa so Surgicel Gelfoam was placed and then we again copiously irrigated and observed for 15 minutes for good hemostasis. Elected to placed 215 [place] non tapered Meng appearing drains in the left and right lower quadrants and adnexa the drains were secured and brought through lateral to the Pfannenstiel incision on both sides. Drain was secured with silk. Instrument sponge count correct x1 after copiously irrigated with 2 L of Ancef normal saline and assuring hemostasis and count correct x1 the peritoneum was closed with running continuous 2-0 chromic rectus fascia closed with a running continuous of looped PDS we copiously irrigated the wound and close the Camper's Susan's fascia with interrupted of 2-0 catgut and then the subcuticular 2-0 Monocryl on a Kevin needle was used to approximate skin edges and then benzoin Steri-Strips placed ABD pad placed over that and then a pressure dressing. She she then will have a abdominal binder placed in recovery Shukla will stay in overnight at least and we will re-evaluate in a.m.. Patient taken recovery room in stable but guarded condition EBL 100 cc. Specimens left adnexa piecemeal tube ovary and abscess. At patient's request her [id number] was called Felipa Spears at [phone] findings were discussed as well as her postop care. I assured her that she is going to need a minimum 2-3 days more IV antibiotics to see how she responds that we would take it daily I could not tell her when the drains will be ready to remove but all questions answered and encouraged. We also discussed the possibility of sepsis and they were hopeful that she will respond now that the abscesses are drained and irrigated. She agreed to speak with her Everardo Spears and he speaks Samoan only and let the rest of the family no her condition procedure and expected outcome. Specimen: Left tube ovary and abscess capsule piecemeal Condition at Discharge: Good Final Diagnosis/Problems List Sepsis likely secondary to bilateral tubo-ovarian abscess and PID status post Exploratory laparotomy drainage of bilateral tubal ovarian abscesses 06/24 Bilateral tubo-ovarian abscess PID Polycystic ovarian syndrome Ruled out STI Ruled out hepatitis Lactic acidosis-resolved History of ulcerative colitis-not on medication Acute gastroenteritis, likely infectious Obesity Grade 3 with a BMI 41.7 Vitamin-D deficiency Discharge Disposition: Home Discharge Instruct/Medications Diet: See Comment Diet comment: Liquid to soft diet slowly for next week Activity: Light activity Follow Up/Referral: OBGYN for follow up in 1 week Medications: Amoxicillin-clavulanate 875 mg p.o. b.i.d. for 7 days Simethicone 80 mg 120 mg p.o. as required Pantoprazole 40 mg p.o. daily Ergocalciferol 79891 evaluate weekly once for 30 days Discharge Statement: "Patient was advised to return to the ER or call 911 if any headaches, dizziness, shortness of breath, chest pain, abdominal pain, bleeding, fevers, or worsening of medical condition. Patient was counseled about treatment plan, medications, possible side effects, patientverbalized understanding. All questions were answered to the best of my ability. This discharge took greater then 30 minutes in planning, reviewing documentation, counseling the patient, and discussing with other team members." ASSESSMENT ASSESSMENT Assessment Bilateral tubo-ovarian abscesses pelvic pain MIKE NARAYAN RESIDENT Jun 27, 2024 16:12
[2024-06-28] MEDS ORDERED: HYDR-4902 PO (20:54)
== END 2024-06-27 23:05 | disposition home or self-care (01) | DRG 710 ==
LOC: ER 20:02 → OVERFLOW 06-23 01:34 → WEST WING 06-23 18:38 → TELE-WESTW 06-24 10:30
PROVIDERS: ADMIT Student in an Organized Health Care Education/Training Program; ATTEND Student in an Organized Health Care Education/Training Program
PROC: 0UN14ZZ Release Left Ovary, Percutaneous Endoscopic Approach (ICD-10-PCS; 2024-06-24)
PROC: 0U9 Female Reproductive System, Drainage (ICD-10-PCS; principal; 2024-06-24 12:29)
DX: A41.9 Sepsis, unspecified organism (principal); E87.20 Acidosis, unspecified; N70.93 Salpingitis and oophoritis, unspecified; N73.9 Female pelvic inflammatory disease, unspecified; A09 Infectious gastroenteritis and colitis, unspecified; E55.9 Vitamin D deficiency, unspecified; E66.9 Obesity, unspecified; E28.2 Polycystic ovarian syndrome; Z87.891 Personal history of nicotine dependence; Z98.891 History of uterine scar from previous surgery; Z79.899 Other long term (current) drug therapy; Z68.38 Body mass index [BMI] 38.0-38.9, adult
CPT/HCPCS: 36415; 74176; 76830; 76856; 80048; 80053; 81001; 81025; 82270; 82306; 82607; 83605; 83735; 84100; 84132; 84443; 84702; 85025; 85048; 85610; 85652; 85730; 86141; 86304; 86592; 86703; 86706; 86803; 86850; 86900; 86901; 87040; 87070; 87075; 87076; 87086; 87205; 87340; 93005; 96365; 96375; 97110; 97116; 97163; 97530; G0378; J0131; J1885; J2250; J2405; J2470; J2543; J3490

== ENCOUNTER 2024-06-28 19:22 | Emergency (ER) | payer MEDICAID ==
[~2024-06-28] VITALS: Ht 162.6 cm; Wt 100.3 kg
[~2024-06-28 19:22] MED LIST: AUG875T PO; ERGO1CAP23 PO; PANT1INJ3 PO; SIME80CH13 PO
[2024-06-28 20:16] VITALS: BP 123/82; PULSE 101; RESP 16; O2SAT 96
[2024-06-28] MEDS: HYDROcodone-ACET 5/325MG TAB PO ONE (20:26)
--- NOTE | 2024-06-28 20:49 | ED.PDOC ---
History of Present Illness(SKN HPI Comments PATIENT IS HERE FOR CONCERNS OF HER MIRIAM DRAIN. STATES SHE HAD HER LEFT OVARY AND FALLOPIAN TUBE REMOVED DUE TO AN ABSCESS. THEY PLACED TWO [place] DRAINS. SHE SAYS THAT TODAY SHE WAS HAVING ISSUES WITH THE LEFT-SIDED DRAIN NOT BEING ABLE TO COMPRESS AGAIN. SHE ALSO STATES THAT SHE WAS SENT HOME WITH NO PAIN MEDICATIONS. NO FEVER NO CHILLS. Chief Complaint: Wound Check Time Seen by MD: 19:50 History of Present Illness: Nurses Notes Allergies: Coded Allergies: NO KNOWN ALLERGIES (Unverified , 06/22/24) Home Meds Active Scripts Pantoprazole Sodium (PANTOPRAZOLE SODIUM) 40 Mg Inj, 40 MG PO DAILY PRN for 30 Days, #30 % Prov:CRISTINA CANNON 06/26/24 Amoxicillin & Pot Clavulanate (AUGMENTIN TABLET) 875 Mg Tb, 875 MG PO BID for 7 Days, #14 TAB Prov:CRISTINA CANNON 06/26/24 Simethicone (Simethicone) 80 Mg Chw, 120 MG PO QIDP PRN for 15 Days, #20 TAB.CHEW Prov:CRISTINA CANNON 06/26/24 Ergocalciferol (VITAMIN D 06570 UNIT) 50,[address] [place], [address] UNIT PO Q7D for 30 Days, #4 CAP Prov:CRISTINA CANNON 06/26/24 Information Source: Patient Mode of Arrival: Ambulatory Past Medical History PAST MEDICAL HISTORY: Denies Surgical History: Denies all surgeries METHODS ANALYST History: No Pertinent METHODS ANALYST History Constitutional: denies: chills, diaphoresis, fatigue, fever, malaise, sweats, weakness, others EENTM: denies: blurred vision, double vision, ear bleeding, ear discharge, ear drainage, ear pain, ear ringing, eye pain, eye redness, hearing loss, mouth pain, mouth swelling, nasal discharge, nose bleeding, nose congestion, nose pain, photophobia, tearing, throat pain, throat swelling, voice changes, others Respiratory: denies: cough, hemoptysis, orthopnea, SOB at rest, shortness of breath, SOB with excertion, stridor, wheezing, others Cardiovascular: denies: chest pain, dizzy spells, diaphoresis, Dyspnea on exertion, edema, irregular heart beat, left arm pain, lightheadedness, palpitations, PND, syncope, others Gastrointestinal: reports: abdominal pain; denies: abdomen distended, blood streaked bowels, constipated, diarrhea, dysphagia, difficulty swallowing, hematemesis, melena, nausea, poor appetite, poor fluid intake, rectal bleeding, rectal pain, vomiting, others Genitourinary: denies: abnormal vagina bleeding, burning, dyspareunia, dysuria, flank pain, frequency, hematuria, incontinence, pain, , vagina discharge, urgency, others Neurological: denies: dizziness, fainting, headache, left sided numbness, left sided weakness, numbness, paresthesia, pre-existing deficit, right sided numbness, right sided weakness, seizure, speech problems, tingling, tremors, weakness, others Musculoskeletal: denies: back pain, gout, joint pain, joint swelling, muscle pain, muscle stiffness, neck pain, others Integumetry: denies: bruises, change in color, change in hair/nails, dryness, laceration, lesions, lumps, rash, wounds, others Allergic/Immunocompromised: denies: Difficulty Healing, Frequent Infections, Hives, Itching, others Hematologic/Lymphatic: denies: anemia, blood clots, easy bleeding, easy bruising, swollen glands, others Endocrine: denies: excessive hunger, excessive sweating, excessive thirst, excessive urination, flushing, intolerance to cold, intolerance to heat, unexplained weight gain, unexplained weight loss, others Psychiatric: denies: anxiety, bipolar disorder, depression, hopeless, panic disorder, schizophrenia, sleepless, suicidal, others Physical Exam General Appearance: No Apparent Distress, Normal HEENT: Normal ENT Inspection, Pharynx Normal, TMs Normal Neck: Full Range of Motion, Non-Tender, Normal, Normal Inspection Respiratory: Chest Non-Tender, Lungs Clear, No Accessory Muscle Use, No Respiratory Distress, Normal Breath Sounds Cardiovascular: No Edema, No JVD, No Murmur, No Gallop, Normal Peripheral Pulses, Regular Rate/Rhythm Breast Exam: Deferred Gastrointestinal: No Organomegaly, Non Tender, No Pulsatile Mass, Normal Bowel Sounds, Soft Genitalia: Deferred Pelvic: Deferred Rectal: Deferred Extremities: No calf tenderness, Normal capillary refill, Normal inspection, Normal range of motion, Non-tender, No pedal edema Musculoskeletal : Apperance: Normal Neurologic: Alert, manager van II-XII nml as Tested, No Motor Deficits, Normal Affect, Normal Mood, No Sensory Deficits Cerebellar Function: Normal Reflexes: Normal Skin: Dry, Normal Color, Warm Lymphatic: No Adenopathy Was a procedure done? Was a procedure done?: No Differential Diagnosis (INTG) Differential Diagnosis: Abrasion, Cellulitis, Contusion Abscess: Abscess, Bacteremia X-Ray, Labs, Meds, VS Vital Signs Date Time Temp Pulse Resp B/P (MAP) Pulse Ox O2 Delivery O2 Flow Rate FiO2 06/28/24 20:16 101 16 96 Room Air* 0 21 06/28/24 20:16 101 18 123/82 (96) 96 06/28/24 20:08 98.0 108 20 142/90 (107) 96 Current Medications Medications (Trade) Dose Ordered Sig/Cecy Route Start Time Stop Time Status Last Admin Acetaminophen/ Hydrocodone Bitart ([place]lee 5/325MG Tab) 1 tab ONCE ONCE PO 06/28/24 20:15 06/28/24 20:16 DC 06/28/24 20:26 X-Ray, Labs, Meds, VS Comment IMAGING: X-RAYS AND CT SCANS WERE REVIEWED AND INTERPRETED BY THIS PROVIDER, IMAGING SHOWS NO FRACTURES AND NO PATHOLOGICAL DISEASE. PENDING RADIOLOGY REVIEW. LABORATORY: LABS REVIEWED AND INTERPRETED BY THIS PROVIDER. NO SIGNIFICANT ABNORMALITIES NOTED. PATIENT HAS PRIOR MEDICAL VISITS REVIEWED. MED RECONCILIATION PERFORMED VITAL SIGNS REVIEWED Time of 1ST Reevaluation: 20:52 Reevaluation 1ST: Improved Patient Education/Counseling: Diagnosis, Treatment, Need For Follow Up (PATIENT ADVISED TO FOLLOW-UP IN THE EMERGENCY ROOM IN THE NEXT 24 TO 48 HOURS IF SYMPTOMS DO NOT IMPROVE. ADVISED FOLLOW-UP WITH PCP IN THE NEXT 3 TO 5 DAYS. PATIENT VERBALIZED UNDERSTANDING. ) Family Education/Counseling: Diagnosis Departure 1 Departure Time of Disposition: 20:53 Impression: Primary Impression: Broken [place] drain Qualified Codes: T85.698A - Other mechanical complication of other specified internal prosthetic devices, implants and grafts, initial encounter Disposition: HOME / SELF CARE / HOMELESS Condition: Fair e-Prescriptions Hydrocodone-Acetaminophen (Hydrocodone Bitartrate/AC 5-325 mg) 1 Tab Tab 1 TAB PO TID PRN, #15 TAB Prov: CYRIL DU 06/28/24 Discharged With: Self Critical Care Note Critical Care Time?: No Stability Stability form required: No Heart Score Heart Score: Heart Score Response (Comments) Value History N/A 0 EKG N/A 0 Age N/A 0 Risk Factors N/A 0 Troponin N/A 0 Total 0 CYRIL DU Jun 28, 2024 20:49
[2024-06-28] MEDS ORDERED: HYDR-4902 PO (20:54)
== END 2024-06-28 21:01 | disposition home or self-care (01) ==
LOC: ER 19:22
DX: T85.9XXA Unspecified complication of internal prosthetic device, implant and graft, initial encounter (principal); Z79.899 Other long term (current) drug therapy; X58.XXXA Exposure to other specified factors, initial encounter

== ENCOUNTER 2024-06-29 17:53 | Emergency (ER) | payer MEDICAID ==
[~2024-06-29 17:53] MED LIST changes: +HYDR-4902 PO
[2024-06-29 18:25] VITALS: BP 115/76; PULSE 100; RESP 18; O2SAT 96
--- NOTE | 2024-06-29 19:01 | ED.PDOC ---
History of Present Illness HPI Comments Patient following up today because her Fran-Hill drain is not staying suction. States she was not noticed any significant that discharge in the drain. States her pain has improved since her visit yesterday. Still pending call back for referral to her surgeon. No fevers no chills. States it is only the left side that is not staying suctioned/compressed Chief Complaint: Tube Replacement Time Seen by MD: 18:10 Reviewed Notes: Nurses Notes Allergies: Coded Allergies: NO KNOWN ALLERGIES (Unverified , 06/22/24) Home Meds Active Scripts Hydrocodone-Acetaminophen (Hydrocodone Bitartrate/AC 5-325 mg) 1 Tab Tab, 1 TAB PO TID PRN, #15 TAB Prov:CYRIL DU 06/28/24 Pantoprazole Sodium (PANTOPRAZOLE SODIUM) 40 Mg Inj, 40 MG PO DAILY PRN for 30 Days, #30 % Prov:CRISTINA CANNON 06/26/24 Amoxicillin & Pot Clavulanate (AUGMENTIN TABLET) 875 Mg Tb, 875 MG PO BID for 7 Days, #14 TAB Prov:CRISTINA CANNON 06/26/24 Simethicone (Simethicone) 80 Mg Chw, 120 MG PO QIDP PRN for 15 Days, #20 TAB.BRENDA W Prov:CRISTINA CANNON 06/26/24 Ergocalciferol (VITAMIN D 82456 UNIT) 50,[address] [place], [address] UNIT PO Q7D for 30 Days, #4 CAP Prov:CRISTINA CANNON 06/26/24 Information Source: Patient Mode of Arrival: Ambulatory Timing: Minutes Past Medical History PAST MEDICAL HISTORY: Denies Surgical History: Denies all surgeries BOAT RIGGER History: No Pertinent BOAT RIGGER History Constitutional: denies: chills, diaphoresis, fatigue, fever, malaise, sweats, w eakness, others EENTM: denies: blurred vision, double vision, ear bleeding, ear discharge, ear drainage, ear pain, ear ringing, eye pain, eye redness, hearing loss, mouth pain, mouth swelling, nasal discharge, nose bleeding, nose congestion, nose pain, photophobia, tearing, throat pain, throat swelling, voice changes, others Respiratory: denies: cough, hemoptysis, orthopnea, SOB at rest, shortness of breath, SOB with excertion, stridor, wheezing, others Cardiovascular: denies: chest pain, dizzy spells, diaphoresis, Dyspnea on exertion, edema, irregular heart beat, left arm pain, lightheadedness, palpitations, PND, syncope, others Gastrointestinal: denies: abdomen distended, abdominal pain, blood streaked bowels, constipated, diarrhea, dysphagia, difficulty swallowing, hematemesis, melena, nausea, poor appetite, poor fluid intake, rectal bleeding, rectal pain, vomiting, others Genitourinary: denies: abnormal vagina bleeding, burning, dyspareunia, dysuria, flank pain, frequency, hematuria, incontinence, pain, , vagina di scharge, urgency, others Neurological: denies: dizziness, fainting, headache, left sided numbness, left sided weakness, numbness, paresthesia, pre-existing deficit, right sided numbness, right sided weakness, seizure, speech problems, tingling, tremors, weakness, others Musculoskeletal: denies: back pain, gout, joint pain, joint swelling, muscle pain, muscle stiffness, neck pain, others Integumetry: denies: bruises, change in color, change in hair/nails, dryness, laceration, lesions, lumps, rash, wounds, others Allergic/Immunocompromised: denies: Difficulty Healing, Frequent Infections, Hives, Itching, others Hematologic/Lymphatic: denies: anemia, blood clots, easy bleeding, easy bruising, swollen glands, others Endocrine: denies: excessive hunger, excessive sweating, excessive thirst, excessive urination, flushing, intolerance to cold, intolerance to heat, unexplained weight gain, unexplained weight loss, others Psychiatric: denies: anxiety, bipolar disorder, depression, hopeless, panic disorder, schizophrenia, sleepless, suicidal, others Physical Exam General Appearance: No Apparent Distress, Normal HEENT: Normal ENT Inspection, Pharynx Normal, TMs Normal Neck: Full Range of Motion, Non-Tender, Normal, Normal Inspection Respiratory: Chest Non-Tender, Lungs Clear, No Accessory Muscle Use, No Respiratory Distress, Normal Breath Sounds Cardiovascular: No Edema, No JVD, No Murmur, No Gallop, Normal Peripheral Pulses, Regular Rate/Rhythm Breast Exam: Deferred Gastrointestinal: No Organomegaly, Non Tender, No Pulsatile Mass, Normal Bowel Sounds, Soft Genitalia: Deferred Pelvic: Deferred Rectal: Deferred Extremities: No calf tenderness, Normal capillary refill, Normal inspection, Normal range of motion, Non-tender, No pedal edema Musculoskeletal : Apperance: Normal Neurologic: Alert, manager analytical II-XII nml as Tested, No Motor Deficits, Normal Affect, Normal Mood, No Sensory Deficits Cerebellar Function: Normal Reflexes: Normal Skin: Dry, Normal Color, Warm Lymphatic: No Adenopathy Was a procedure done? Was a procedure done?: No Differential Dx Considerations may include: Postsurgical complications, cellulitis X-Ray, Labs, Meds, VS Vital Signs Date Time Temp Pulse Resp B/P (MAP) Pulse Ox O2 Delivery O2 Flow Rate FiO2 06/29/24 18:25 97.0 100 18 115/76 (89) 96 X-Ray, Labs, Meds, VS Comment Fran-Hill drains were assessed, the left drain appears to be having no drainage in. It is possible that the left-sided has stopped draining. She was advised to call her surgeon and see by making an appointment to get into him next available. Time of 1ST Reevaluation: 19:00 Reevaluation 1ST: Improved Patient Education/Counseling: Diagnosis, Treatment, Need For Follow Up (Follow up with a general surgeon.) Family Education/Counseling: Diagnosis, Treatment Departure 1 Departure Time of Disposition: 19:00 Impression: Primary Impression: Broken Fran-Hill drain Qualified Codes: T85.698D - Other mechanical complication of other specified internal prosthetic devices, implants and grafts, subsequent encounter Disposition: HOME / SELF CARE / HOMELESS Condition: Fair Discharged With: Self Critical Care Note Critical Care Time?: No Stability Stability form required: No Heart Score Heart Score: Heart Score Response (Comments) Value History N/A 0 EKG N/A 0 Age N/A 0 Risk Factors N/A 0 Troponin N/A 0 Total 0 CYRIL DU Jun 29, 2024 19:01
== END 2024-06-29 20:00 | disposition home or self-care (01) ==
LOC: ER 17:53
DX: T85.698D Other mechanical complication of other specified internal prosthetic devices, implants and grafts, subsequent encounter (principal)
CPT/HCPCS: 99291